=== PATIENT | female | born 1980 | race Caucasian/White ===

== ENCOUNTER 2016-02-28 13:15 | Emergency (ER) | payer SELFPAY ==
[~2016-02-28] VITALS: Ht 177.8 cm; Wt 122.5 kg
[~2016-02-28 13:15] MED LIST: CYCL10TA9 PO; DICL75TA2 PO; FLC150T PO; METR500T; NAPR-243 PO; NF-ESOM40C PO; SULF1TAB23 PO; TRM50T PO
--- OUTSIDE RECORDS SUMMARY | 2016-02-28 13:20 | XMS REPORT | Continuity of Care Document ---
Author Author [facility] Organization [facility] Address Unknown Phone Unavailable Care Team Providers Care Tin Assorter Name Role Phone [facility] OF PCP Insurance Providers Payer Name Policy Number Subscriber Name Relationship Self Pay Nae Tripp 18 Self / Same As Patient Advance Directives Directive Response Recorded Date/Time Advance Directives No 01/13/14 4:27pm Resuscitation Status Full Code 01/13/14 4:27pm Problems Medical Problems Problem Onset Date Status Abdominal pain Unknown Active Medications Medication Dose Route Sig Days/Qty Instructions Order Date Discontinued Date Status Naproxen 1 Each PO THREE TIMES A DAY 30 Qty FOR PAIN 05/30/08 07/03/10 Discontinued Tramadol HCl 50 Mg PO EVERY 4HRS 20 Qty 05/30/08 07/03/10 Discontinued Fluconazole 150 Mg PO ONCE 1 Days 09/01/08 07/03/10 Discontinued Metronidazole (Flagyl) 09/08/08 07/03/10 Discontinued Cyclobenzaprine HCl (Flexeril) 10 Mg PO EVERY 8HRS PRN PAIN 09/08/13 01/13/14 Discontinued Esomeprazole Magnesium 40 Mg PO DAILY 30 Qty 01/13/14 Active Diclofenac Sodium 75 Mg PO TWICE A DAY 01/13/14 Active Sulfamethoxazole/Trimethoprim 1 Tab PO TWICE A DAY 20 Qty 01/13/14 Active Social History Social History Problem Response Recorded Date/Time Alcohol Use Denies Use 01/13/2014 4:27pm Recreational Drug Use No 01/13/2014 4:27pm Recent Foreign Travel No 01/13/2014 4:19pm Smoking Status Former Smoker 01/13/2014 4:27pm Query Response Start Date Stop Date Smoking Status Former Smoker Hospital Discharge Instructions No hospital discharge instructions. Plan of Care No plan of care. Functional Status No functional status results. Allergies, Adverse Reactions, Alerts Allergen Type Severity Reaction Status Last Updated Aspirin Allergy Unknown Active 01/13/14 ibuprofen Allergy Mild HIVES Active 05/30/08 Amoxicillin ([id number]) Allergy Mild HIVES Active 05/30/08 Immunizations Name Given Type Date of Influenza Vaccine 11/07/13 Historical Tetanus Booster (TDap) Unknown Historical Vital Signs Acute Vital Signs Vital Response Date/Time Temperature (Fahrenheit) 98.5 degrees F (97.6 - 99.5) Temperature (Calculated Celsius) 36.39492 degrees C (36.4 - 37.5) Temperature Source Temporal Pulse Rate (adult) 92 bpm (60 - 90) Respiratory Rate 16 bpm (12 - 24) O2 Sat by Pulse Oximetry 97 % (88 - 100) Blood Pressure 156/91 mm Hg Pain Pain Intensity 7 Height (Feet) 5 feet Height (Inches) 9 inches Height (Calculated Centimeters) 175.548457 cm Weight (Pounds) 304 pounds Weight (Calculated Kilograms) 137.079759 kilograms Calculated BMI 44.89 Results No known relevant diagnostic tests, laboratory data and/or discharge summary. Procedures No known history of procedures. Encounters Encounter Location Date/Time Departed Emergency Room [facility] 01/13/14 4:16pm Registered Clinic [facility] 12/31/13 12:19pm Recent Diagnosis
[2016-02-28] MEDS ORDERED: meTOproloL SUCCINATE 50 MG (TOPROL XL) TAB PO ONE (13:28)
[2016-02-28] MEDS ORDERED: meTOprolol TARTRATE 25 MG (LOPRESSOR) TABLET ONE (13:29)
--- NOTE | 2016-02-28 13:31 | ED Cardiac General ---
History of Present Illness General Chief Complaint: Cardiac/General Problems Stated Complaint: DIZZINESS/ELEV BP Source: patient Exam Limitations: no limitations History of Present Illness Time seen by provider: 13:29 Initial Comments To ER with reports of dizziness, headache, high blood pressure. She was at work at [employer] when she had dizziness, sweating, near syncopal event but she did not actually lose consciousness. Staff on scene checked her blood pressure and found it to be very high at 190/90 range. Upon arrival to ER she is 193/93. She states normally her blood pressure is 130s over 70s. She denies chest pain or shortness of breath. She had all of her teeth pulled and dentures made last week and is currently on antibiotics and pain medication. She denies any current pain. Severity: moderate NTG SL [employer] BRANCH MANAGER: No ASA po [employer]CIAL INSTITUTION BRANCH MANAGER: No Associated Systoms: No Chest Pain, No Cough, No Diaphoresis, No Fever/Chills, HeadachesNo Nausea/Vomiting Allergies and Home Medications Allergies Coded Allergies: amoxicillin (Unverified Allergy, Mild, HIVES, 05/30/08) ibuprofen (Unverified Allergy, Mild, HIVES, 05/30/08) aspirin (Unverified Allergy, Unknown, 01/13/14) Home Medications Diclofenac Sodium 75 Mg Tablet. 75 MG PO BID (Reported) Esomeprazole Mag Trihydrate 40 Mg Capsule. #30 40 MG PO DAILY (Reported) Sulfamethoxazole/Trimethoprim 1 Tab Tablet #20 1 TAB PO BID Prescribed by: KAJAL LOPEZ on 01/13/14 1731 Review of Systems Constitutional: see HPI EENTM: No Symptoms Reported Respiratory: No Symptoms ReportedDenies Cough, Denies Orthopnea, Denies Shortness of Air, Denies SOA With Exertion, Denies SOA at Rest, Denies Stridor, Denies Wheezing Cardiovascular: No Symptoms Reported Gastrointestinal: No Symptoms Reported Genitourinary: No Symptoms Reported Musculoskeletal: no symptoms reported Skin: no symptoms reported Psychiatric/Neurological: No Symptoms Reported Endocrine: No Symptoms Reported Past Fdnsrvi-Bcvqoo-Omobkb Hx Patient Social History Recent Foreign Travel: No Contact w/Someone Who Travel: No Immunizations Up To Date Tetanus Booster (TDap): Unknown Date of Influenza Vaccine: Nov 07, 2013 Surgeries HX Surgeries: Yes Surgeries: Adenoidectomy, Tonsillectomy Respiratory Hx Respiratory Disorders: Yes Respiratory Disorders: Asthma Cardiovascular Hx Cardiac Disorders: No Neurological Hx Neurological Disorders: No Genitourinary Hx Genitourinary Disorders: No Gastrointestinal Hx Gastrointestinal Disorders: No Musculoskeletal Hx Musculoskeletal Disorders: Yes Musculoskeletal Disorders: Arthritis Endocrine Hx Endocrine Disorders: No Cancer Hx Cancer: No Psychosocial Hx Psychiatric Problems: No Family Medical History Family Medial History: Patient reports no known family medical history. Physical Exam Vital Signs Vital Sign - Last 12Hours 02/28/16 13:17 Temp 98.0 Pulse 108 Resp 18 B/P 192/98 Pulse Ox 97 O2 Delivery Room Air Capillary Refill : General Appearance: No Apparent Distress WD/WN Obese HEENT: PERRL/EOMI TMs Normal Neck: Full Range of Motion Normal Inspection Respiratory: Lungs Clear Normal Breath Sounds No Accessory Muscle Use No Respiratory Distress Cardiovascular: Regular Rate, Rhythm Normal Peripheral Pulses Gastrointestinal: Normal Bowel Sounds Non Tender Soft Extremity: Normal Capillary Refill Normal Inspection Neurologic/Psychiatric: Alert Oriented x3 Skin: Normal Color Warm/Dry Progress/Results/Core Measures Results/Orders Lab Results Laboratory Tests Test 02/28/16 13:28 Range/Units Alanine Aminotransferase (ALT/SGPT) 20 0-55 U/L Albumin 4.5 3.2-4.5 G/DL Alkaline Phosphatase 61 40-136 U/L Anion Gap 12 5-14 MMOL/L Aspartate Amino Transf (AST/SGOT) 20 5-34 U/L BUN/Creatinine Ratio 16 Basophils # (Auto) 0.0 0.0-0.1 10^3/uL Basophils (%) (Auto) 1 0-10 % Blood Urea Nitrogen 13 7-18 MG/DL Calcium Level 9.5 8.5-10.1 MG/DL Carbon Dioxide Level 22 21-32 MMOL/L Chloride Level 104 98-107 MMOL/L Creatinine 0.81 0.60-1.30 MG/DL Eosinophils # (Auto) 0.1 0.0-0.3 10^3/uL Eosinophils (%) (Auto) 1 0-10 % Estimat Glomerular Filtration Rate > 60 Free Thyroxine 1.08 0.70-1.48 NG/DL Glucose Level 108 H 70-105 MG/DL Hematocrit 44 35-52 % Hemoglobin 15.2 11.5-16.0 G/DL Lymphocytes # (Auto) 1.4 1.0-4.0 X 10^3 Lymphocytes (%) (Auto) 17 12-44 % Mean Corpuscular Hemoglobin 29 25-34 PG Mean Corpuscular Hemoglobin Concent 35 32-36 G/DL Mean Corpuscular Volume 85 80-99 FL Mean Platelet Volume 10.5 H 7.4-10.4 FL Monocytes # (Auto) 0.9 0.0-1.0 X 10^3 Monocytes (%) (Auto) 11 0-12 % Neutrophils # (Auto) 5.9 1.8-7.8 X 10^3 Neutrophils (%) (Auto) 70 42-75 % Platelet Count 201 130-400 10^3/uL Potassium Level 3.6 3.6-5.0 MMOL/L Red Blood Count 5.17 4.35-5.85 10^6/uL Red Cell Distribution Width 13.0 10.0-14.5 % Sodium Level 138 135-145 MMOL/L Thyroid Stimulating Hormone (TSH) 0.81 0.35-4.94 UIU/ML Total Bilirubin 0.7 0.1-1.0 MG/DL Total Protein 7.5 6.4-8.2 G/DL Troponin I < 0.30 <0.30 NG/ML White Blood Count 8.4 4.3-11.0 10^3/uL My Orders Orders-WILMER BLACKMAN APRN Cbc With Automated Diff (02/28/16 13:28) Comprehensive Metabolic Panel (02/28/16 13:28) Troponin I (02/28/16 13:28) Ekg Tracing (02/28/16 13:28) Thyroid Stimulating Hormone (02/28/16 13:28) Free T4 (Free Thyroxine) (02/28/16 13:28) Clonidine Tablet (Catapres Tablet) (02/28/16 13:45) Metoprolol Tartrate (Ir) Tab (Lopressor (02/28/16 13:45) Metoprolol Succinate (Xl) Tab (Toprol Xl (02/28/16 13:28) Metoprolol Tartrate (Ir) Tab (Lopressor (02/28/16 13:29) Medications Given in ED Current Medications Medications Dose Ordered Sig/Renny Route Start Time Stop Time Status Last Admin Dose Admin Metoprolol Tartrate 50 mg ONCE ONCE PO 02/28/16 13:45 02/28/16 13:46 DC 02/28/16 13:38 50 MG Vital Signs/I&O Vital Sign - Last 12Hours 02/28/16 13:17 Temp 98.0 Pulse 108 Resp 18 B/P 192/98 Pulse Ox 97 O2 Delivery Room Air Departure Communication Progress Notes 1345-No unilateral leg swelling, no dyspnea or shortness of breath, no exogenous estrogen use, no history of DVT. Impression Impression: Primary Impression: Hypertensive urgency Disposition: 01 HOME, SELF-CARE Condition: Stable Departure-Patient Inst. Decision time for Depature: 13:45 Referrals: [facility] (PCP/Family) Primary Care Physician Patient Instructions: High Blood Pressure (DC) Add. Discharge Instructions: 1. Follow-up with your doctor later this week 2. Return to ER for any concerns 3. All discharge instructions reviewed with patient and/or family. Voiced understanding. Scripts Metoprolol Succinate (Toprol Xl)25 Mg Tab.er.24h25 Mg PO DAILY #14 TAB Prov:WILMER BLACKMAN APRN 02/28/16 WILMER BLACKMAN APRN Feb 28, 2016 13:31
[2016-02-28 13:43] LABS: BASOPHILS % (AUTO) 1 % (0-10); EOSINOPHILS # (AUTO) 0.1 10^3/uL (0.0-0.3); EOSINOPHILS % (AUTO) 1 % (0-10); LYMPHOCYTES # (AUTO) 1.4 X 10^3 (1.0-4.0); LYMPHOCYTES % (AUTO) 17 % (12-44); MEAN CORPUSCULAR HEMOGLOBIN 29 PG (25-34); MEAN CORPUSCULAR HGB CONC 35 G/DL (32-36); MEAN CORPUSCULAR VOLUME 85 FL (80-99); MEAN PLATELET VOLUME 10.5 FL (7.4-10.4); MONOCYTES # (AUTO) 0.9 X 10^3 (0.0-1.0); MONOCYTES % (AUTO) 11 % (0-12); NEUTROPHILS # (AUTO) 5.9 X 10^3 (1.8-7.8); NEUTROPHILS % (AUTO) 70 % (42-75); PLATELET COUNT 201 10^3/uL (130-400); RED BLOOD COUNT 5.17 10^6/uL (4.35-5.85); WHITE BLOOD COUNT 8.4 10^3/uL (4.3-11.0)
[2016-02-28] MEDS ORDERED: meTOprolol TARTRATE 50 MG (LOPRESSOR) TAB PO ONE (13:45)
[2016-02-28] MEDS ORDERED: cloNIDine 0.1 MG (CATAPRES) TAB PO ONE (13:45)
[2016-02-28 14:01] LABS: ALANINE AMINOTRANSFERASE 20 U/L (0-55); ALBUMIN 4.5 G/DL (3.2-4.5); ANION GAP 12 MMOL/L (5-14); ASPARTATE AMINO TRANSFERASE 20 U/L (5-34); BILIRUBIN,TOTAL 0.7 MG/DL (0.1-1.0); BLOOD UREA NITROGEN 13 MG/DL (7-18); BUN/CREATININE RATIO 16; CALCIUM 9.5 MG/DL (8.5-10.1); CARBON DIOXIDE 22 MMOL/L (21-32); CHLORIDE 104 MMOL/L (98-107); CREATININE SERUM 0.81 MG/DL (0.60-1.30); GFR ESTIMATED > 60; GLUCOSE 108 MG/DL (70-105); POTASSIUM 3.6 MMOL/L (3.6-5.0); SODIUM 138 MMOL/L (135-145); TOTAL PROTEIN 7.5 G/DL (6.4-8.2)
[2016-02-28 14:21] LABS: THYROID STIMULATING HORMONE 0.81 UIU/ML (0.35-4.94); TROPONIN I < 0.30 NG/ML (<0.30)
[2016-02-28] MEDS ORDERED: METO-351 PO (14:39)
[2016-02-28] MEDS ORDERED: KETOROLAC 30 MG/ML VIAL IVP ONE (15:15)
[2016-02-28 15:26] VITALS: BP 137/79
== END 2016-02-28 15:24 | disposition home or self-care (01) ==
LOC: EDUNIT# 13:15 → ER 13:16
DX: I16.0 Hypertensive urgency (principal); R42 Dizziness and giddiness; R55 Syncope and collapse
CPT/HCPCS: 36415; 80053; 84439; 84443; 84484; 85025; 93005; 96374

== ENCOUNTER 2017-03-17 05:54 | Outpatient (CLI) | payer SELFPAY ==
[~2017-03-17] VITALS: Ht 175.3 cm; Wt 121.1 kg
[~2017-03-17 05:54] MED LIST changes: +METO-351 PO
[2017-03-17] MEDS ORDERED: HYDR-34 PO (12:24)
[2017-03-17] MEDS ORDERED: SULF-222 PO (12:24)
== END 2017-03-17 12:33 ==
LOC: PREOP 05:54
PROVIDERS: ATTEND Surgery
DX: Z01.818 Encounter for other preprocedural examination (principal); N76.4 Abscess of vulva

== ENCOUNTER → 2020-01-24 | Outpatient (CLI) | payer MEDICAID ==
[~2020-01-24] MED LIST changes: +HYDR-34 PO; +SULF-222 PO
== END ==
LOC: CARD 11:00
PROVIDERS: ATTEND Internal Medicine Hematology & Oncology
DX: Z51.81 Encounter for therapeutic drug level monitoring (principal); C55 Malignant neoplasm of uterus, part unspecified; I51.7 Cardiomegaly
CPT/HCPCS: 93306

== ENCOUNTER 2020-02-07 12:58 | Outpatient (RCR) | payer MEDICAID, OTHER ==
[2020-01-22 12:57] LABS: BASOPHILS % (AUTO) 0 % (0-10); EOSINOPHILS # (AUTO) 0.3 10^3/uL (0.0-0.3); EOSINOPHILS % (AUTO) 3 % (0-10); HEMATOCRIT 39 % (35-52); HEMOGLOBIN 12.3 g/dL (11.5-16.0); LYMPHOCYTES # (AUTO) 1.7 10^3/uL (1.0-4.0); LYMPHOCYTES % (AUTO) 19 % (12-44); MEAN CORPUSCULAR HEMOGLOBIN 27 pg (25-34); MEAN CORPUSCULAR HGB CONC 32 g/dL (32-36); MEAN CORPUSCULAR VOLUME 87 fL (80-99); MEAN PLATELET VOLUME 9.2 fL (9.0-12.2); MONOCYTES # (AUTO) 0.7 10^3/uL (0.0-1.0); MONOCYTES % (AUTO) 8 % (0-12); NEUTROPHILS # (AUTO) 6.1 10^3/uL (1.8-7.8); NEUTROPHILS % (AUTO) 68 % (42-75); PLATELET COUNT 224 10^3/uL (130-400); WHITE BLOOD COUNT 8.9 10^3/uL (4.3-11.0)
[2020-01-22 13:26] LABS: ALANINE AMINOTRANSFERASE 12 U/L (0-55); ALBUMIN 4.1 GM/DL (3.2-4.5); ALKALINE PHOSPHATASE 58 U/L (40-136); BILIRUBIN,TOTAL 0.3 MG/DL (0.1-1.0); BUN/CREATININE RATIO 14; CALCIUM 9.2 MG/DL (8.5-10.1); CARBON DIOXIDE 24 MMOL/L (21-32); CHLORIDE 104 MMOL/L (98-107); CREATININE SERUM 0.84 MG/DL (0.60-1.30); GFR ESTIMATED > 60; GLUCOSE 95 MG/DL (70-105); POTASSIUM 4.1 MMOL/L (3.6-5.0); SODIUM 139 MMOL/L (135-145); TOTAL PROTEIN 7.5 GM/DL (6.4-8.2)
[2020-02-06 09:21] LABS: BASOPHILS % (AUTO) 0 % (0-10); EOSINOPHILS % (AUTO) 0 % (0-10); HEMATOCRIT 41 % (35-52); HEMOGLOBIN 12.9 g/dL (11.5-16.0); LYMPHOCYTES # (AUTO) 0.3 10^3/uL (1.0-4.0); LYMPHOCYTES % (AUTO) 4 % (12-44); MEAN CORPUSCULAR HEMOGLOBIN 27 pg (25-34); MEAN CORPUSCULAR HGB CONC 32 g/dL (32-36); MEAN CORPUSCULAR VOLUME 86 fL (80-99); MEAN PLATELET VOLUME 9.8 fL (9.0-12.2); MONOCYTES # (AUTO) 0.1 10^3/uL (0.0-1.0); MONOCYTES % (AUTO) 1 % (0-12); NEUTROPHILS # (AUTO) 7.8 10^3/uL (1.8-7.8); NEUTROPHILS % (AUTO) 94 % (42-75); PLATELET COUNT 221 10^3/uL (130-400); WHITE BLOOD COUNT 8.3 10^3/uL (4.3-11.0)
[2020-02-06 09:40] LABS: ALANINE AMINOTRANSFERASE 12 U/L (0-55); ALBUMIN 4.1 GM/DL (3.2-4.5); ALKALINE PHOSPHATASE 56 U/L (40-136); BILIRUBIN,TOTAL 0.3 MG/DL (0.1-1.0); BUN/CREATININE RATIO 14; CARBON DIOXIDE 22 MMOL/L (21-32); CHLORIDE 103 MMOL/L (98-107); CREATININE SERUM 0.84 MG/DL (0.60-1.30); GFR ESTIMATED > 60; GLUCOSE 242 MG/DL (70-105); POTASSIUM 3.8 MMOL/L (3.6-5.0); SODIUM 137 MMOL/L (135-145); TOTAL PROTEIN 7.7 GM/DL (6.4-8.2)
[~2020-02-07] VITALS: Ht 175.3 cm; Wt 128.4 kg
[~2020-02-07 12:58] MED LIST changes: +FAMOTIDINE 20MG/2ML IV (CANCER CTR) IV SCH; +FOSAPREPITANT (CANCER CENTER) 150 MG in NS (IVPB) CANCER CENTER ONLY 150 ML IV SCH; +NS IV 1000 ML (CANCER CTR) IV SCH; +diphenhydrAMINE 50 MG/ML INJ (CANCER CENTER) IV PRN; +diphenhydrAMINE 50 MG/ML INJ (CANCER CENTER) ONE
[2020-02-07] MEDS ORDERED: PEGFILGRASTIM 6 MG/0.6ML NEULASTA SC SCH (13:15)
== END 2020-02-11 15:34 | disposition home or self-care (01) ==
LOC: ONC 12:58
PROVIDERS: ATTEND Internal Medicine Hematology & Oncology
DX: C55 Malignant neoplasm of uterus, part unspecified (principal)
CPT/HCPCS: 80053; 85025; G0463; 36591; 83735; 96367; 96372; 96375; 96413; 96415; 96417; 99213; 99214

== ENCOUNTER 2020-04-23 12:43 | Outpatient (RCR) | payer MEDICAID ==
[2020-02-13 09:35] LABS: BASOPHILS # (AUTO) 0.1 10^3/uL (0.0-0.1); BASOPHILS % (AUTO) 1 % (0-10); EOSINOPHILS # (AUTO) 0.2 10^3/uL (0.0-0.3); EOSINOPHILS % (AUTO) 1 % (0-10); HEMATOCRIT 40 % (35-52); LYMPHOCYTES # (AUTO) 1.9 10^3/uL (1.0-4.0); LYMPHOCYTES % (AUTO) 11 % (12-44); MEAN CORPUSCULAR HEMOGLOBIN 27 pg (25-34); MEAN CORPUSCULAR HGB CONC 32 g/dL (32-36); MEAN CORPUSCULAR VOLUME 85 fL (80-99); MEAN PLATELET VOLUME 9.7 fL (9.0-12.2); MONOCYTES # (AUTO) 1.2 10^3/uL (0.0-1.0); MONOCYTES % (AUTO) 7 % (0-12); NEUTROPHILS # (AUTO) 11.1 10^3/uL (1.8-7.8); NEUTROPHILS % (AUTO) 66 % (42-75); PLATELET COUNT 202 10^3/uL (130-400); WHITE BLOOD COUNT 16.8 10^3/uL (4.3-11.0)
[2020-02-13 09:56] LABS: BUN/CREATININE RATIO 16; CALCIUM 9.2 MG/DL (8.5-10.1); CARBON DIOXIDE 25 MMOL/L (21-32); CHLORIDE 104 MMOL/L (98-107); GFR ESTIMATED > 60; GLUCOSE 112 MG/DL (70-105); POTASSIUM 4.2 MMOL/L (3.6-5.0); SODIUM 139 MMOL/L (135-145)
[2020-02-20 09:39] LABS: BASOPHILS % (AUTO) 1 % (0-10); EOSINOPHILS # (AUTO) 0.1 10^3/uL (0.0-0.3); EOSINOPHILS % (AUTO) 1 % (0-10); HEMATOCRIT 41 % (35-52); HEMOGLOBIN 13.3 g/dL (11.5-16.0); LYMPHOCYTES # (AUTO) 1.3 10^3/uL (1.0-4.0); LYMPHOCYTES % (AUTO) 20 % (12-44); MEAN CORPUSCULAR HEMOGLOBIN 28 pg (25-34); MEAN CORPUSCULAR HGB CONC 32 g/dL (32-36); MEAN CORPUSCULAR VOLUME 85 fL (80-99); MONOCYTES # (AUTO) 0.3 10^3/uL (0.0-1.0); MONOCYTES % (AUTO) 5 % (0-12); NEUTROPHILS # (AUTO) 4.7 10^3/uL (1.8-7.8); NEUTROPHILS % (AUTO) 72 % (42-75); PLATELET COUNT 131 10^3/uL (130-400); WHITE BLOOD COUNT 6.4 10^3/uL (4.3-11.0)
[2020-02-20 09:58] LABS: BUN/CREATININE RATIO 10; CALCIUM 9.1 MG/DL (8.5-10.1); CARBON DIOXIDE 21 MMOL/L (21-32); CHLORIDE 106 MMOL/L (98-107); CREATININE SERUM 0.86 MG/DL (0.60-1.30); GFR ESTIMATED > 60; GLUCOSE 175 MG/DL (70-105); POTASSIUM 3.7 MMOL/L (3.6-5.0); SODIUM 140 MMOL/L (135-145)
[2020-02-27 09:19] LABS: BASOPHILS % (AUTO) 0 % (0-10); EOSINOPHILS % (AUTO) 0 % (0-10); HEMATOCRIT 41 % (35-52); HEMOGLOBIN 13.5 g/dL (11.5-16.0); LYMPHOCYTES # (AUTO) 0.4 10^3/uL (1.0-4.0); LYMPHOCYTES % (AUTO) 5 % (12-44); MEAN CORPUSCULAR HEMOGLOBIN 27 pg (25-34); MEAN CORPUSCULAR HGB CONC 33 g/dL (32-36); MEAN CORPUSCULAR VOLUME 84 fL (80-99); MEAN PLATELET VOLUME 9.7 fL (9.0-12.2); MONOCYTES # (AUTO) 0.1 10^3/uL (0.0-1.0); MONOCYTES % (AUTO) 1 % (0-12); NEUTROPHILS % (AUTO) 93 % (42-75); PLATELET COUNT 247 10^3/uL (130-400); WHITE BLOOD COUNT 7.4 10^3/uL (4.3-11.0)
[2020-02-27 09:35] LABS: ALANINE AMINOTRANSFERASE 18 U/L (0-55); ALBUMIN 4.2 GM/DL (3.2-4.5); ALKALINE PHOSPHATASE 70 U/L (40-136); BILIRUBIN,TOTAL 0.3 MG/DL (0.1-1.0); BUN/CREATININE RATIO 14; CALCIUM 9.6 MG/DL (8.5-10.1); CARBON DIOXIDE 19 MMOL/L (21-32); CHLORIDE 103 MMOL/L (98-107); CREATININE SERUM 0.87 MG/DL (0.60-1.30); GFR ESTIMATED > 60; GLUCOSE 270 MG/DL (70-105); MAGNESIUM 1.7 MG/DL (1.6-2.4); POTASSIUM 4.2 MMOL/L (3.6-5.0); SODIUM 137 MMOL/L (135-145); TOTAL PROTEIN 7.7 GM/DL (6.4-8.2)
[2020-03-05 15:06] LABS: BASOPHILS # (AUTO) 0.1 10^3/uL (0.0-0.1); BASOPHILS % (AUTO) 1 % (0-10); EOSINOPHILS # (AUTO) 0.2 10^3/uL (0.0-0.3); EOSINOPHILS % (AUTO) 1 % (0-10); HEMATOCRIT 40 % (35-52); LYMPHOCYTES # (AUTO) 2.1 10^3/uL (1.0-4.0); LYMPHOCYTES % (AUTO) 11 % (12-44); MEAN CORPUSCULAR HEMOGLOBIN 28 pg (25-34); MEAN CORPUSCULAR HGB CONC 33 g/dL (32-36); MEAN CORPUSCULAR VOLUME 85 fL (80-99); MEAN PLATELET VOLUME 9.9 fL (9.0-12.2); MONOCYTES % (AUTO) 5 % (0-12); NEUTROPHILS # (AUTO) 14.6 10^3/uL (1.8-7.8); NEUTROPHILS % (AUTO) 73 % (42-75); PLATELET COUNT 161 10^3/uL (130-400); WHITE BLOOD COUNT 19.9 10^3/uL (4.3-11.0)
[2020-03-05 15:18] LABS: BUN/CREATININE RATIO 16; CALCIUM 8.9 MG/DL (8.5-10.1); CARBON DIOXIDE 21 MMOL/L (21-32); CHLORIDE 106 MMOL/L (98-107); CREATININE SERUM 0.96 MG/DL (0.60-1.30); GFR ESTIMATED > 60; GLUCOSE 207 MG/DL (70-105); POTASSIUM 3.7 MMOL/L (3.6-5.0); SODIUM 139 MMOL/L (135-145)
[2020-03-12 12:02] LABS: BASOPHILS % (AUTO) 0 % (0-10); EOSINOPHILS # (AUTO) 0.1 10^3/uL (0.0-0.3); EOSINOPHILS % (AUTO) 1 % (0-10); HEMATOCRIT 41 % (35-52); HEMOGLOBIN 13.1 g/dL (11.5-16.0); LYMPHOCYTES % (AUTO) 18 % (12-44); MEAN CORPUSCULAR HEMOGLOBIN 28 pg (25-34); MEAN CORPUSCULAR HGB CONC 32 g/dL (32-36); MEAN CORPUSCULAR VOLUME 86 fL (80-99); MEAN PLATELET VOLUME 9.6 fL (9.0-12.2); MONOCYTES # (AUTO) 0.6 10^3/uL (0.0-1.0); MONOCYTES % (AUTO) 6 % (0-12); NEUTROPHILS # (AUTO) 8.1 10^3/uL (1.8-7.8); NEUTROPHILS % (AUTO) 73 % (42-75); PLATELET COUNT 162 10^3/uL (130-400); WHITE BLOOD COUNT 11.1 10^3/uL (4.3-11.0)
[2020-03-12 12:25] LABS: BUN/CREATININE RATIO 11; CALCIUM 9.4 MG/DL (8.5-10.1); CARBON DIOXIDE 24 MMOL/L (21-32); CHLORIDE 104 MMOL/L (98-107); CREATININE SERUM 0.79 MG/DL (0.60-1.30); GFR ESTIMATED > 60; GLUCOSE 95 MG/DL (70-105); POTASSIUM 3.5 MMOL/L (3.6-5.0); SODIUM 141 MMOL/L (135-145)
[2020-03-19 11:25] LABS: BASOPHILS % (AUTO) 0 % (0-10); EOSINOPHILS % (AUTO) 0 % (0-10); HEMATOCRIT 37 % (35-52); HEMOGLOBIN 12.1 g/dL (11.5-16.0); LYMPHOCYTES # (AUTO) 0.5 10^3/uL (1.0-4.0); LYMPHOCYTES % (AUTO) 6 % (12-44); MEAN CORPUSCULAR HEMOGLOBIN 28 pg (25-34); MEAN CORPUSCULAR HGB CONC 33 g/dL (32-36); MEAN CORPUSCULAR VOLUME 85 fL (80-99); MEAN PLATELET VOLUME 8.9 fL (9.0-12.2); MONOCYTES # (AUTO) 0.3 10^3/uL (0.0-1.0); MONOCYTES % (AUTO) 3 % (0-12); NEUTROPHILS # (AUTO) 7.8 10^3/uL (1.8-7.8); NEUTROPHILS % (AUTO) 90 % (42-75); PLATELET COUNT 162 10^3/uL (130-400); WHITE BLOOD COUNT 8.7 10^3/uL (4.3-11.0)
[2020-03-19 11:43] LABS: ALANINE AMINOTRANSFERASE 12 U/L (0-55); ALBUMIN 3.8 GM/DL (3.2-4.5); ALKALINE PHOSPHATASE 70 U/L (40-136); BILIRUBIN,TOTAL 0.3 MG/DL (0.1-1.0); BUN/CREATININE RATIO 10; CALCIUM 8.9 MG/DL (8.5-10.1); CARBON DIOXIDE 24 MMOL/L (21-32); CHLORIDE 105 MMOL/L (98-107); GFR ESTIMATED > 60; GLUCOSE 172 MG/DL (70-105); MAGNESIUM 1.7 MG/DL (1.6-2.4); POTASSIUM 3.6 MMOL/L (3.6-5.0); SODIUM 139 MMOL/L (135-145); TOTAL PROTEIN 6.7 GM/DL (6.4-8.2)
[2020-04-02 09:53] LABS: BASOPHILS % (AUTO) 0 % (0-10); EOSINOPHILS # (AUTO) 0.1 10^3/uL (0.0-0.3); EOSINOPHILS % (AUTO) 1 % (0-10); HEMATOCRIT 41 % (35-52); HEMOGLOBIN 13.6 g/dL (11.5-16.0); LYMPHOCYTES # (AUTO) 1.4 10^3/uL (1.0-4.0); LYMPHOCYTES % (AUTO) 17 % (12-44); MEAN CORPUSCULAR HEMOGLOBIN 29 pg (25-34); MEAN CORPUSCULAR HGB CONC 33 g/dL (32-36); MEAN CORPUSCULAR VOLUME 87 fL (80-99); MEAN PLATELET VOLUME 9.1 fL (9.0-12.2); MONOCYTES # (AUTO) 0.5 10^3/uL (0.0-1.0); MONOCYTES % (AUTO) 7 % (0-12); NEUTROPHILS # (AUTO) 5.9 10^3/uL (1.8-7.8); NEUTROPHILS % (AUTO) 74 % (42-75); PLATELET COUNT 160 10^3/uL (130-400); WHITE BLOOD COUNT 7.9 10^3/uL (4.3-11.0)
[2020-04-02 10:12] LABS: BUN/CREATININE RATIO 9; CALCIUM 9.1 MG/DL (8.5-10.1); CARBON DIOXIDE 23 MMOL/L (21-32); CHLORIDE 106 MMOL/L (98-107); CREATININE SERUM 0.85 MG/DL (0.60-1.30); GFR ESTIMATED > 60; GLUCOSE 137 MG/DL (70-105); POTASSIUM 3.7 MMOL/L (3.6-5.0); SODIUM 139 MMOL/L (135-145)
[2020-04-09 10:15] LABS: BASOPHILS % (AUTO) 0 % (0-10); EOSINOPHILS % (AUTO) 0 % (0-10); HEMATOCRIT 39 % (35-52); HEMOGLOBIN 12.8 g/dL (11.5-16.0); LYMPHOCYTES # (AUTO) 0.3 10^3/uL (1.0-4.0); LYMPHOCYTES % (AUTO) 5 % (12-44); MEAN CORPUSCULAR HEMOGLOBIN 29 pg (25-34); MEAN CORPUSCULAR HGB CONC 33 g/dL (32-36); MEAN CORPUSCULAR VOLUME 87 fL (80-99); MEAN PLATELET VOLUME 9.4 fL (9.0-12.2); MONOCYTES % (AUTO) 1 % (0-12); NEUTROPHILS # (AUTO) 4.5 10^3/uL (1.8-7.8); NEUTROPHILS % (AUTO) 93 % (42-75); PLATELET COUNT 223 10^3/uL (130-400); WHITE BLOOD COUNT 4.9 10^3/uL (4.3-11.0)
[2020-04-09 10:34] LABS: ALANINE AMINOTRANSFERASE 18 U/L (0-55); ALBUMIN 4.2 GM/DL (3.2-4.5); ALKALINE PHOSPHATASE 77 U/L (40-136); BILIRUBIN,TOTAL 0.3 MG/DL (0.1-1.0); BUN/CREATININE RATIO 13; CALCIUM 9.3 MG/DL (8.5-10.1); CARBON DIOXIDE 19 MMOL/L (21-32); CHLORIDE 106 MMOL/L (98-107); CREATININE SERUM 0.84 MG/DL (0.60-1.30); GFR ESTIMATED > 60; GLUCOSE 188 MG/DL (70-105); MAGNESIUM 1.7 MG/DL (1.6-2.4); POTASSIUM 3.9 MMOL/L (3.6-5.0); SODIUM 138 MMOL/L (135-145); TOTAL PROTEIN 7.4 GM/DL (6.4-8.2)
[2020-04-16 11:54] LABS: BASOPHILS # (AUTO) 0.1 10^3/uL (0.0-0.1); BASOPHILS % (AUTO) 1 % (0-10); EOSINOPHILS # (AUTO) 0.1 10^3/uL (0.0-0.3); EOSINOPHILS % (AUTO) 1 % (0-10); HEMATOCRIT 37 % (35-52); HEMOGLOBIN 12.2 g/dL (11.5-16.0); LYMPHOCYTES % (AUTO) 12 % (12-44); MEAN CORPUSCULAR HEMOGLOBIN 29 pg (25-34); MEAN CORPUSCULAR HGB CONC 33 g/dL (32-36); MEAN CORPUSCULAR VOLUME 88 fL (80-99); MEAN PLATELET VOLUME 9.5 fL (9.0-12.2); MONOCYTES % (AUTO) 6 % (0-12); NEUTROPHILS # (AUTO) 11.3 10^3/uL (1.8-7.8); NEUTROPHILS % (AUTO) 71 % (42-75); PLATELET COUNT 175 10^3/uL (130-400); WHITE BLOOD COUNT 15.8 10^3/uL (4.3-11.0)
[2020-04-16 12:11] LABS: BUN/CREATININE RATIO 13; CARBON DIOXIDE 25 MMOL/L (21-32); CHLORIDE 104 MMOL/L (98-107); GFR ESTIMATED > 60; GLUCOSE 127 MG/DL (70-105); POTASSIUM 3.8 MMOL/L (3.6-5.0); SODIUM 141 MMOL/L (135-145)
[~2020-04-23 12:43] MED LIST changes: +NORMAL SALINE IV SCH; +PACLITAXEL IV SCH; +PEGFILGRASTIM 6 MG/0.6ML NEULASTA SC SCH; +PEGFILGRASTIM-BMEZ 6 MG/0.6 ML ZIEXTENZO SQ SCH; +diphenhydrAMINE 25 MG TAB (BENADRYL) CANCER CENTER PO ONE; +diphenhydrAMINE 25 MG TAB (BENADRYL) CANCER CENTER PO SCH; -diphenhydrAMINE 50 MG/ML INJ (CANCER CENTER) ONE
[2020-04-23 12:53] LABS: BASOPHILS % (AUTO) 1 % (0-10); EOSINOPHILS # (AUTO) 0.1 10^3/uL (0.0-0.3); EOSINOPHILS % (AUTO) 1 % (0-10); HEMATOCRIT 37 % (35-52); HEMOGLOBIN 12.2 g/dL (11.5-16.0); LYMPHOCYTES # (AUTO) 1.4 10^3/uL (1.0-4.0); LYMPHOCYTES % (AUTO) 18 % (12-44); MEAN CORPUSCULAR HEMOGLOBIN 30 pg (25-34); MEAN CORPUSCULAR HGB CONC 33 g/dL (32-36); MEAN CORPUSCULAR VOLUME 89 fL (80-99); MEAN PLATELET VOLUME 9.4 fL (9.0-12.2); MONOCYTES # (AUTO) 0.5 10^3/uL (0.0-1.0); MONOCYTES % (AUTO) 6 % (0-12); NEUTROPHILS # (AUTO) 5.4 10^3/uL (1.8-7.8); NEUTROPHILS % (AUTO) 73 % (42-75); PLATELET COUNT 163 10^3/uL (130-400); WHITE BLOOD COUNT 7.5 10^3/uL (4.3-11.0)
[2020-04-23 13:12] LABS: BUN/CREATININE RATIO 9; CALCIUM 8.8 MG/DL (8.5-10.1); CARBON DIOXIDE 23 MMOL/L (21-32); CHLORIDE 107 MMOL/L (98-107); CREATININE SERUM 0.78 MG/DL (0.60-1.30); GFR ESTIMATED > 60; GLUCOSE 103 MG/DL (70-105); POTASSIUM 3.8 MMOL/L (3.6-5.0); SODIUM 140 MMOL/L (135-145)
== END 2020-05-13 | disposition home or self-care (01) ==
LOC: ONC 12:43
PROVIDERS: ATTEND Internal Medicine Hematology & Oncology
DX: C55 Malignant neoplasm of uterus, part unspecified (principal); Z87.891 Personal history of nicotine dependence; Z90.710 Acquired absence of both cervix and uterus
CPT/HCPCS: 36591; 80048; 80053; 83735; 85025; 96367; 96372; 96375; 96413; 96415; 96417; 99213

== ENCOUNTER 2020-06-25 10:30 | Outpatient (RCR) | payer MEDICAID ==
[2020-05-14 10:16] LABS: BASOPHILS % (AUTO) 0 % (0-10); EOSINOPHILS % (AUTO) 0 % (0-10); HEMATOCRIT 40 % (35-52); HEMOGLOBIN 13.4 g/dL (11.5-16.0); LYMPHOCYTES # (AUTO) 0.3 10^3/uL (1.0-4.0); LYMPHOCYTES % (AUTO) 4 % (12-44); MEAN CORPUSCULAR HEMOGLOBIN 30 pg (25-34); MEAN CORPUSCULAR HGB CONC 33 g/dL (32-36); MEAN CORPUSCULAR VOLUME 89 fL (80-99); MEAN PLATELET VOLUME 9.3 fL (9.0-12.2); MONOCYTES # (AUTO) 0.1 10^3/uL (0.0-1.0); MONOCYTES % (AUTO) 1 % (0-12); NEUTROPHILS % (AUTO) 94 % (42-75); PLATELET COUNT 230 10^3/uL (130-400); WHITE BLOOD COUNT 7.4 10^3/uL (4.3-11.0)
[2020-05-14 10:36] LABS: ALANINE AMINOTRANSFERASE 14 U/L (0-55); ALKALINE PHOSPHATASE 67 U/L (40-136); BILIRUBIN,TOTAL 0.4 MG/DL (0.1-1.0); BUN/CREATININE RATIO 16; CALCIUM 9.1 MG/DL (8.5-10.1); CARBON DIOXIDE 19 MMOL/L (21-32); CHLORIDE 105 MMOL/L (98-107); CREATININE SERUM 0.76 MG/DL (0.60-1.30); GFR ESTIMATED > 60; GLUCOSE 220 MG/DL (70-105); MAGNESIUM 1.7 MG/DL (1.6-2.4); SODIUM 138 MMOL/L (135-145)
[2020-05-21 15:28] LABS: BASOPHILS # (AUTO) 0.1 10^3/uL (0.0-0.1); BASOPHILS % (AUTO) 1 % (0-10); EOSINOPHILS # (AUTO) 0.1 10^3/uL (0.0-0.3); EOSINOPHILS % (AUTO) 1 % (0-10); HEMATOCRIT 38 % (35-52); HEMOGLOBIN 12.2 g/dL (11.5-16.0); LYMPHOCYTES # (AUTO) 1.6 10^3/uL (1.0-4.0); LYMPHOCYTES % (AUTO) 16 % (12-44); MEAN CORPUSCULAR HEMOGLOBIN 30 pg (25-34); MEAN CORPUSCULAR HGB CONC 32 g/dL (32-36); MEAN CORPUSCULAR VOLUME 92 fL (80-99); MEAN PLATELET VOLUME 9.7 fL (9.0-12.2); MONOCYTES # (AUTO) 0.7 10^3/uL (0.0-1.0); MONOCYTES % (AUTO) 7 % (0-12); NEUTROPHILS # (AUTO) 7.4 10^3/uL (1.8-7.8); NEUTROPHILS % (AUTO) 73 % (42-75); PLATELET COUNT 154 10^3/uL (130-400); WHITE BLOOD COUNT 10.1 10^3/uL (4.3-11.0)
[2020-05-21 15:36] LABS: CHLORIDE 102 MMOL/L (98-107); POTASSIUM 3.6 MMOL/L (3.6-5.0); SODIUM 137 MMOL/L (135-145)
[2020-05-21 15:37] LABS: CALCIUM 8.9 MG/DL (8.5-10.1); GLUCOSE 154 MG/DL (70-105)
[2020-05-21 15:39] LABS: CARBON DIOXIDE 24 MMOL/L (21-32)
[2020-05-21 15:41] LABS: CREATININE SERUM 0.85 MG/DL (0.60-1.30); GFR ESTIMATED > 60
[2020-05-21 15:42] LABS: BUN/CREATININE RATIO 11
[2020-05-30 14:56] LABS: BASOPHILS % (AUTO) 0 % (0-10); EOSINOPHILS # (AUTO) 0.1 10^3/uL (0.0-0.3); EOSINOPHILS % (AUTO) 1 % (0-10); HEMATOCRIT 39 % (35-52); HEMOGLOBIN 12.9 g/dL (11.5-16.0); LYMPHOCYTES # (AUTO) 1.4 10^3/uL (1.0-4.0); LYMPHOCYTES % (AUTO) 19 % (12-44); MEAN CORPUSCULAR HEMOGLOBIN 30 pg (25-34); MEAN CORPUSCULAR HGB CONC 33 g/dL (32-36); MEAN CORPUSCULAR VOLUME 92 fL (80-99); MONOCYTES # (AUTO) 0.5 10^3/uL (0.0-1.0); MONOCYTES % (AUTO) 7 % (0-12); NEUTROPHILS # (AUTO) 5.3 10^3/uL (1.8-7.8); NEUTROPHILS % (AUTO) 72 % (42-75); PLATELET COUNT 170 10^3/uL (130-400); WHITE BLOOD COUNT 7.4 10^3/uL (4.3-11.0)
[2020-05-30 15:13] LABS: BUN/CREATININE RATIO 9; CALCIUM 8.7 MG/DL (8.5-10.1); CARBON DIOXIDE 24 MMOL/L (21-32); CHLORIDE 104 MMOL/L (98-107); CREATININE SERUM 0.78 MG/DL (0.60-1.30); GFR ESTIMATED > 60; GLUCOSE 143 MG/DL (70-105); POTASSIUM 3.6 MMOL/L (3.6-5.0); SODIUM 138 MMOL/L (135-145)
[2020-06-04 09:43] LABS: BASOPHILS % (AUTO) 0 % (0-10); EOSINOPHILS % (AUTO) 0 % (0-10); HEMATOCRIT 39 % (35-52); LYMPHOCYTES # (AUTO) 0.3 10^3/uL (1.0-4.0); LYMPHOCYTES % (AUTO) 4 % (12-44); MEAN CORPUSCULAR HEMOGLOBIN 30 pg (25-34); MEAN CORPUSCULAR HGB CONC 33 g/dL (32-36); MEAN CORPUSCULAR VOLUME 90 fL (80-99); MEAN PLATELET VOLUME 9.3 fL (9.0-12.2); MONOCYTES # (AUTO) 0.1 10^3/uL (0.0-1.0); MONOCYTES % (AUTO) 1 % (0-12); NEUTROPHILS % (AUTO) 94 % (42-75); PLATELET COUNT 222 10^3/uL (130-400); WHITE BLOOD COUNT 6.4 10^3/uL (4.3-11.0)
[2020-06-04 10:06] LABS: ALANINE AMINOTRANSFERASE 12 U/L (0-55); ALBUMIN 4.2 GM/DL (3.2-4.5); ALKALINE PHOSPHATASE 80 U/L (40-136); BILIRUBIN,TOTAL 0.4 MG/DL (0.1-1.0); BUN/CREATININE RATIO 11; CALCIUM 9.2 MG/DL (8.5-10.1); CARBON DIOXIDE 20 MMOL/L (21-32); CHLORIDE 105 MMOL/L (98-107); CREATININE SERUM 0.84 MG/DL (0.60-1.30); GFR ESTIMATED > 60; GLUCOSE 193 MG/DL (70-105); MAGNESIUM 3.6 MG/DL (1.6-2.4); POTASSIUM 3.8 MMOL/L (3.6-5.0); SODIUM 139 MMOL/L (135-145); TOTAL PROTEIN 7.3 GM/DL (6.4-8.2)
[2020-06-11 08:39] LABS: BASOPHILS # (AUTO) 0.1 10^3/uL (0.0-0.1); BASOPHILS % (AUTO) 1 % (0-10); EOSINOPHILS # (AUTO) 0.1 10^3/uL (0.0-0.3); EOSINOPHILS % (AUTO) 1 % (0-10); HEMATOCRIT 38 % (35-52); HEMOGLOBIN 12.3 g/dL (11.5-16.0); LYMPHOCYTES # (AUTO) 1.6 10^3/uL (1.0-4.0); LYMPHOCYTES % (AUTO) 12 % (12-44); MEAN CORPUSCULAR HEMOGLOBIN 30 pg (25-34); MEAN CORPUSCULAR HGB CONC 33 g/dL (32-36); MEAN CORPUSCULAR VOLUME 92 fL (80-99); MEAN PLATELET VOLUME 9.6 fL (9.0-12.2); MONOCYTES # (AUTO) 0.9 10^3/uL (0.0-1.0); MONOCYTES % (AUTO) 6 % (0-12); NEUTROPHILS % (AUTO) 73 % (42-75); PLATELET COUNT 172 10^3/uL (130-400); WHITE BLOOD COUNT 13.7 10^3/uL (4.3-11.0)
[2020-06-11 08:55] LABS: BUN/CREATININE RATIO 10; CALCIUM 8.5 MG/DL (8.5-10.1); CARBON DIOXIDE 25 MMOL/L (21-32); CHLORIDE 107 MMOL/L (98-107); CREATININE SERUM 0.78 MG/DL (0.60-1.30); GFR ESTIMATED > 60; GLUCOSE 147 MG/DL (70-105); POTASSIUM 3.3 MMOL/L (3.6-5.0); SODIUM 141 MMOL/L (135-145)
[2020-06-18 14:39] LABS: BASOPHILS % (AUTO) 0 % (0-10); EOSINOPHILS # (AUTO) 0.1 10^3/uL (0.0-0.3); EOSINOPHILS % (AUTO) 1 % (0-10); HEMATOCRIT 40 % (35-52); HEMOGLOBIN 13.1 g/dL (11.5-16.0); LYMPHOCYTES # (AUTO) 1.6 10^3/uL (1.0-4.0); LYMPHOCYTES % (AUTO) 20 % (12-44); MEAN CORPUSCULAR HEMOGLOBIN 30 pg (25-34); MEAN CORPUSCULAR HGB CONC 32 g/dL (32-36); MEAN CORPUSCULAR VOLUME 93 fL (80-99); MEAN PLATELET VOLUME 9.8 fL (9.0-12.2); MONOCYTES # (AUTO) 0.5 10^3/uL (0.0-1.0); MONOCYTES % (AUTO) 6 % (0-12); NEUTROPHILS # (AUTO) 5.5 10^3/uL (1.8-7.8); NEUTROPHILS % (AUTO) 70 % (42-75); PLATELET COUNT 178 10^3/uL (130-400); WHITE BLOOD COUNT 7.8 10^3/uL (4.3-11.0)
[2020-06-18 15:12] LABS: CHLORIDE 105 MMOL/L (98-107); POTASSIUM 3.6 MMOL/L (3.6-5.0); SODIUM 140 MMOL/L (135-145)
[2020-06-18 15:14] LABS: GLUCOSE 172 MG/DL (70-105)
[2020-06-18 15:15] LABS: CARBON DIOXIDE 22 MMOL/L (21-32)
[2020-06-18 15:18] LABS: CREATININE SERUM 0.78 MG/DL (0.60-1.30); GFR ESTIMATED > 60
[2020-06-18 15:19] LABS: BUN/CREATININE RATIO 12
[~2020-06-25 10:30] MED LIST changes: -PEGFILGRASTIM 6 MG/0.6ML NEULASTA SC SCH; +diphenhydrAMINE 50 MG/ML INJ (CANCER CENTER) ONE
[2020-06-25 10:51] LABS: BASOPHILS % (AUTO) 0 % (0-10); EOSINOPHILS # (AUTO) 0.1 10^3/uL (0.0-0.3); EOSINOPHILS % (AUTO) 1 % (0-10); HEMATOCRIT 38 % (35-52); HEMOGLOBIN 12.4 g/dL (11.5-16.0); LYMPHOCYTES # (AUTO) 1.2 10^3/uL (1.0-4.0); LYMPHOCYTES % (AUTO) 15 % (12-44); MEAN CORPUSCULAR HEMOGLOBIN 30 pg (25-34); MEAN CORPUSCULAR HGB CONC 33 g/dL (32-36); MEAN CORPUSCULAR VOLUME 92 fL (80-99); MEAN PLATELET VOLUME 9.4 fL (9.0-12.2); MONOCYTES # (AUTO) 0.5 10^3/uL (0.0-1.0); MONOCYTES % (AUTO) 7 % (0-12); NEUTROPHILS # (AUTO) 5.8 10^3/uL (1.8-7.8); NEUTROPHILS % (AUTO) 76 % (42-75); PLATELET COUNT 169 10^3/uL (130-400); WHITE BLOOD COUNT 7.6 10^3/uL (4.3-11.0)
[2020-06-25 11:14] LABS: ALANINE AMINOTRANSFERASE 10 U/L (0-55); ALBUMIN 3.5 GM/DL (3.2-4.5); ALKALINE PHOSPHATASE 69 U/L (40-136); BILIRUBIN,TOTAL 0.2 MG/DL (0.1-1.0); BUN/CREATININE RATIO 8; CALCIUM 8.3 MG/DL (8.5-10.1); CARBON DIOXIDE 27 MMOL/L (21-32); CHLORIDE 106 MMOL/L (98-107); CREATININE SERUM 0.71 MG/DL (0.60-1.30); GFR ESTIMATED > 60; GLUCOSE 140 MG/DL (70-105); MAGNESIUM 1.7 MG/DL (1.6-2.4); POTASSIUM 3.5 MMOL/L (3.6-5.0); SODIUM 140 MMOL/L (135-145); TOTAL PROTEIN 6.3 GM/DL (6.4-8.2)
[2020-08-13] MEDS ORDERED: ACHD5005 PO (15:53)
== END 2020-08-12 | disposition home or self-care (01) ==
LOC: ONC 10:30
PROVIDERS: ATTEND Internal Medicine Hematology & Oncology
DX: Z51.11 Encounter for antineoplastic chemotherapy (principal); C54.1 Malignant neoplasm of endometrium; C79.62 Secondary malignant neoplasm of left ovary; C79.61 Secondary malignant neoplasm of right ovary; Z87.891 Personal history of nicotine dependence; Z90.710 Acquired absence of both cervix and uterus; Z79.891 Long term (current) use of opiate analgesic; Z79.899 Other long term (current) drug therapy
CPT/HCPCS: 80053; 83735; 85025; 96367; 96375; 96413; 96415; 96417; G0463; 36591; 80048; 96372

== ENCOUNTER 2020-08-13 13:57 | Emergency (ER) | payer MEDICAID ==
[~2020-08-13] VITALS: Ht 175.3 cm; Wt 122.5 kg
[~2020-08-13 13:57] MED LIST changes: -FAMOTIDINE 20MG/2ML IV (CANCER CTR) IV SCH; -FOSAPREPITANT (CANCER CENTER) 150 MG in NS (IVPB) CANCER CENTER ONLY 150 ML IV SCH; -NORMAL SALINE IV SCH; -NS IV 1000 ML (CANCER CTR) IV SCH; -PACLITAXEL IV SCH; -PEGFILGRASTIM-BMEZ 6 MG/0.6 ML ZIEXTENZO SQ SCH; -diphenhydrAMINE 25 MG TAB (BENADRYL) CANCER CENTER PO ONE; -diphenhydrAMINE 25 MG TAB (BENADRYL) CANCER CENTER PO SCH; -diphenhydrAMINE 50 MG/ML INJ (CANCER CENTER) IV PRN; -diphenhydrAMINE 50 MG/ML INJ (CANCER CENTER) ONE
--- NOTE | 2020-08-13 14:12 | ED Abdominal Pain ---
General Chief Complaint: Abdominal/GI Problems Stated Complaint: GENERLIZED WEAKNESS Source of Information: Patient Exam Limitations: No Limitations History of Present Illness Date Seen by Provider: Aug 13, 2020 Time Seen by Provider: 14:12 Initial Comments This is a 40-year-old female who presents to the ER with complaints of abdominal pain, headache, vision changes. Allergies and Home Medications Allergies Coded Allergies: amoxicillin (Unverified Allergy, Mild, HIVES, 05/30/08) aspirin (Unverified Allergy, Unknown, 01/13/14) Home Medications Hydrocodone Bit/Acetaminophen 1 Ea Tablet, 1 TAB PO Q4H PRN for PAIN-MILD TO MODERATE, (Reported) Sulfamethoxazole/Trimethoprim 1 Each Tablet, 1 EACH PO BID, (Reported) Past Arleozh-Ahhhzl-Soxoju Hx Patient Social History Tobacco Use?: No Smoking Status: Former Smoker Substance use?: No Alcohol Use?: No Immunizations Up To Date Tetanus Booster (TDap): Unknown Seasonal Allergies Seasonal Allergies: No Past Medical History Surgeries: Yes Adenoidectomy, Tonsillectomy Respiratory: Yes Asthma Cardiac: No Neurological: No Gastrointestinal: No Musculoskeletal: Yes Arthritis Endocrine: No Cancer: No Psychosocial: No Family Medical History Patient reports no known family medical history. Physical Exam Vital Signs Vital Signs - First Documented 08/13/20 13:58 Temp 36.7 Pulse 89 Resp 16 B/P (MAP) 137/68 (91) Pulse Ox 98 O2 Delivery Room Air Capillary Refill : Height/Weight/BMI Height: 5'9.00" Weight: 267lbs. 0.0oz. 121.169945qj; 39.4 BMI Method:Stated Focused Exam Lactate Level 08/13/20 14:45: Lactic Acid Level 1.03 Lactic Acid Level Laboratory Tests Test 08/13/20 14:45 Lactic Acid Level 1.03 MMOL/L (0.50-2.00) Progress/Results/Core Measures Results/Orders Lab Results Laboratory Tests Test 08/13/20 14:45 08/13/20 15:40 Range/Units White Blood Count 8.1 4.3-11.0 10^3/uL Red Blood Count 4.48 3.80-5.11 10^6/uL Hemoglobin 12.9 11.5-16.0 g/dL Hematocrit 40 35-52 % Mean Corpuscular Volume 88 80-99 fL Mean Corpuscular Hemoglobin 29 25-34 pg Mean Corpuscular Hemoglobin Concent 33 32-36 g/dL Red Cell Distribution Width 12.6 10.0-14.5 % Platelet Count 226 130-400 10^3/uL Mean Platelet Volume 9.4 9.0-12.2 fL Immature Granulocyte % (Auto) 0 % Neutrophils (%) (Auto) 73 42-75 % Lymphocytes (%) (Auto) 18 12-44 % Monocytes (%) (Auto) 7 0-12 % Eosinophils (%) (Auto) 1 0-10 % Basophils (%) (Auto) 0 0-10 % Neutrophils # (Auto) 5.9 1.8-7.8 10^3/uL Lymphocytes # (Auto) 1.5 1.0-4.0 10^3/uL Monocytes # (Auto) 0.6 0.0-1.0 10^3/uL Eosinophils # (Auto) 0.1 0.0-0.3 10^3/uL Basophils # (Auto) 0.0 0.0-0.1 10^3/uL Immature Granulocyte # (Auto) 0.0 0.0-0.1 10^3/uL Sodium Level 143 135-145 MMOL/L Potassium Level 3.9 3.6-5.0 MMOL/L Chloride Level 108 H 98-107 MMOL/L Carbon Dioxide Level 26 21-32 MMOL/L Anion Gap 9 5-14 MMOL/L Blood Urea Nitrogen 8 7-18 MG/DL Creatinine 0.73 0.60-1.30 MG/DL Estimat Glomerular Filtration Rate > 60 BUN/Creatinine Ratio 11 Glucose Level 97 70-105 MG/DL Lactic Acid Level 1.03 0.50-2.00 MMOL/L Calcium Level 9.0 8.5-10.1 MG/DL Corrected Calcium 9.2 8.5-10.1 MG/DL Total Bilirubin 0.3 0.1-1.0 MG/DL Aspartate Amino Transf (AST/SGOT) 11 5-34 U/L Alanine Aminotransferase (ALT/SGPT) 13 0-55 U/L Alkaline Phosphatase 72 40-136 U/L Total Protein 6.7 6.4-8.2 GM/DL Albumin 3.7 3.2-4.5 GM/DL Procalcitonin 0.02 <0.10 NG/ML My Orders Orders - SOLEDAD CHAMPION APRN Cbc With Automated Diff (08/13/20 14:09) Comprehensive Metabolic Panel (08/13/20 14:09) Blood Culture (08/13/20 14:09) Sputum Culture (08/13/20 14:09) Urinalysis (08/13/20 14:09) Urine Culture (08/13/20 14:09) Protime With Inr (08/13/20 14:09) Partial Thromboplastin Time (08/13/20 14:09) Chest 1 View, Ap/Pa Only (08/13/20 14:09) Ed Iv/Invasive Line Start (08/13/20 14:09) Vital Signs Adult Sepsis Patie Q15M (08/13/20 14:09) O2 (08/13/20 14:09) Lactic Acid Analyzer (08/13/20 14:09) Procalcitonin (Pct) (08/13/20 14:09) Fentanyl Inj (Sublimaze Injection) (08/13/20 14:15) Ct Head Wo (08/13/20 14:09) Medications Given in ED Current Medications Medications Dose Ordered Sig/Renny Route Start Time Stop Time Status Last Admin Dose Admin Fentanyl Citrate 50 mcg ONCE ONCE IVP 08/13/20 14:15 08/13/20 14:16 DC 08/13/20 14:53 50 MCG Vital Signs/I&O 08/13/20 08/13/20 08/13/20 13:58 15:43 15:45 Temp 36.7 Pulse 89 89 89 Resp 16 16 16 B/P (MAP) 137/68 (91) 119/77 119/77 Pulse Ox 98 99 99 O2 Delivery Room Air Room Air Room Air Departure Impression Primary Impression: Abdominal pain Disposition: HOME, SELF-CARE Condition: Improved Departure-Patient Inst. Decision time for Depature: 15:43 Referrals: [facility] (PCP) Primary Care Physician VERE[facility] MOLINA (Family) Primary Care Physician Patient Instructions: Acute Pain, Adult (DC) Add. Discharge Instructions: Plan: 1. Keep follow up with your Oncologist next week as scheduled. 2. Use Miralax daily to twice a day to achieve soft stools. Decrease if you are experiencing diarrhea. 3. Return if you develop any new, concerning, or worsening symptoms. 4. All discharge instructions reviewed with patient and/or family. Voiced understanding. Scripts Hydrocodone/Acetaminophen (Hydrocodone-Acetamin 5-325 mg) 1 Each Tablet 1 TAB PO Q4H PRN for PAIN-MODERATE (5-7), #14 TAB 0 Refills Prov: SOLEDAD CHAMPION SENIOR STRATEGY ANALYST 08/13/20 SOLEDAD CHAMPION SENIOR STRATEGY ANALYST Aug 13, 2020 14:12
[2020-08-13] MEDS ORDERED: fentaNYL INJ 100 MCG/2 ML AMP IVP ONE (14:15)
[2020-08-13 14:54] LABS: BASOPHILS % (AUTO) 0 % (0-10); EOSINOPHILS # (AUTO) 0.1 10^3/uL (0.0-0.3); EOSINOPHILS % (AUTO) 1 % (0-10); HEMATOCRIT 40 % (35-52); HEMOGLOBIN 12.9 g/dL (11.5-16.0); LYMPHOCYTES # (AUTO) 1.5 10^3/uL (1.0-4.0); LYMPHOCYTES % (AUTO) 18 % (12-44); MEAN CORPUSCULAR HEMOGLOBIN 29 pg (25-34); MEAN CORPUSCULAR HGB CONC 33 g/dL (32-36); MEAN CORPUSCULAR VOLUME 88 fL (80-99); MEAN PLATELET VOLUME 9.4 fL (9.0-12.2); MONOCYTES # (AUTO) 0.6 10^3/uL (0.0-1.0); MONOCYTES % (AUTO) 7 % (0-12); NEUTROPHILS # (AUTO) 5.9 10^3/uL (1.8-7.8); NEUTROPHILS % (AUTO) 73 % (42-75); PLATELET COUNT 226 10^3/uL (130-400); WHITE BLOOD COUNT 8.1 10^3/uL (4.3-11.0)
[2020-08-13 15:05] LABS: ALBUMIN 3.7 GM/DL (3.2-4.5); CHLORIDE 108 MMOL/L (98-107); POTASSIUM 3.9 MMOL/L (3.6-5.0)
[2020-08-13 15:06] LABS: SODIUM 143 MMOL/L (135-145)
[2020-08-13 15:08] LABS: GLUCOSE 97 MG/DL (70-105); TOTAL PROTEIN 6.7 GM/DL (6.4-8.2)
[2020-08-13 15:09] LABS: CARBON DIOXIDE 26 MMOL/L (21-32)
[2020-08-13 15:10] LABS: BILIRUBIN,TOTAL 0.3 MG/DL (0.1-1.0)
[2020-08-13 15:11] LABS: ALKALINE PHOSPHATASE 72 U/L (40-136); CREATININE SERUM 0.73 MG/DL (0.60-1.30); GFR ESTIMATED > 60
[2020-08-13 15:13] LABS: BUN/CREATININE RATIO 11
[2020-08-13 15:14] LABS: ALANINE AMINOTRANSFERASE 13 U/L (0-55)
--- NOTE | 2020-08-13 15:34 | Diagnostic Imaging Report ---
Indication: Chest pain and sepsis Frontal chest obtained at 3:09 p.m. Heart and mediastinal silhouette are normal in appearance. The lungs are clear. There is no pneumothorax or pleural fluid. Impression: Negative chest. Dictated by: Dictated on workstation # [id number]
--- NOTE | 2020-08-13 15:40 | Diagnostic Imaging Report ---
INDICATION: Headache and visual changes. TECHNIQUE: Multiple contiguous axial images were obtained through the brain without the use of intravenous contrast. Auto Exposure Controls were utilized during the CT exam to meet ALARA standards for radiation dose reduction. COMPARISON: There is no previous study for comparison. FINDINGS: There are no extra-axial fluid collections. No intracranial hemorrhage. No intracranial mass or mass effect. No midline shift. The ventricles are normal in size and position. There are no focal parenchymal abnormalities in the brain. The calvarial windows are unremarkable. IMPRESSION: Negative noncontrast brain CT. Dictated by: Dictated on workstation # [id number]
[2020-08-13 15:45] VITALS: BP 119/77
[2020-08-13] MEDS ORDERED: ACHD5005 PO (15:53)
[2020-08-13 16:11] LABS: INR 0.9 (0.8-1.4); PROTHROMBIN TIME PATIENT 12.9 SEC (12.2-14.7)
== END 2020-08-13 16:02 | disposition home or self-care (01) ==
LOC: EDUNIT# 13:57 → ER 13:58
DX: R10.9 Unspecified abdominal pain (principal); J45.909 Unspecified asthma, uncomplicated; Z87.891 Personal history of nicotine dependence
CPT/HCPCS: 36415; 70450; 71045; 80053; 83605; 84145; 85025; 85610; 85730; 87040

== ENCOUNTER → 2020-08-25 | Outpatient (CLI) | payer MEDICAID ==
[~2020-08-25] MED LIST changes: +ACHD5005 PO
== END ==
LOC: CARD 10:06
PROVIDERS: ATTEND Internal Medicine Hematology & Oncology
DX: I51.7 Cardiomegaly (principal); C55 Malignant neoplasm of uterus, part unspecified; Z79.899 Other long term (current) drug therapy
CPT/HCPCS: 93306

== ENCOUNTER → 2020-09-04 | Outpatient (CLI) | payer MEDICAID ==
--- NOTE | 2020-09-04 09:48 | Diagnostic Imaging Report ---
INDICATION: Pain. Three views of the right shoulder were obtained. FINDINGS: The alignment is normal. There is no fracture or dislocation. Right lung is clear. Soft tissues are unremarkable. IMPRESSION: No focal abnormality in the right shoulder Dictated by: Dictated on workstation # [id number]
--- NOTE | 2020-09-04 09:49 | Diagnostic Imaging Report ---
INDICATION: Pain. Two views of the right humerus were obtained. FINDINGS: The osseous alignment is normal. There is no acute fracture or dislocation. The soft tissues are unremarkable. IMPRESSION: No acute abnormality. Dictated by: Dictated on workstation # [id number]
== END ==
LOC: RAD 08:03
PROVIDERS: ATTEND Nurse Practitioner Adult Health
DX: M25.511 Pain in right shoulder (principal); M79.621 Pain in right upper arm
CPT/HCPCS: 73030; 73060

== ENCOUNTER → 2020-11-13 | Outpatient (CLI) | payer MEDICAID ==
[~2020-11-13] MED LIST changes: +BARIUM SUSPENSION 2.1% (VANILLA SILQ) 450 ML PO ONE; +CATHETER FLUSH 10 ML SYR IV PRN; +HOLD METFORMIN - RECEIVED CONTRAST 20 ML VIAL IV SCH; +IOHEXOL 350 MG/ML 100 ML (OMNIPAQUE 350) VIAL IV ONE; +NS 100 ML (IVPB) BAG IV ONE
--- NOTE | 2020-11-13 10:43 | Diagnostic Imaging Report ---
PROCEDURE: CT chest with contrast, CT abdomen and pelvis with and without contrast. TECHNIQUE: Pre and post intravenous contrast axial imaging of the abdomen and pelvis and post contrast axial imaging of the chest were performed. Auto Exposure Controls were utilized during the CT exam to meet ALARA standards for radiation dose reduction. INDICATION: Malignant neoplasm of the uterus. CT CHEST: No axillary lymphadenopathy is detected. There appears to be a central line with tip in the SVC. No mediastinal or hilar lymphadenopathy is identified. No pericardial or pleural fluid is detected. No pulmonary nodules, masses or infiltrates are detected. Bony structures are unremarkable. CT abdomen and pelvis: Correlation is made with prior CT abdomen and pelvis from 09/08/2013. There are 2 low-density lesions within the liver, not present on prior CT. Lesion in the dome of the right lobe measures 12 mm. A lesion more inferiorly in the right lobe measures 14 mm. These are indeterminate. Gallbladder is unremarkable. There is no biliary duct dilatation. The pancreas and spleen are unremarkable. No adrenal mass is identified. Kidneys are unremarkable. Aorta is nonaneurysmal. No central retroperitoneal or mesenteric lymphadenopathy is detected. The bowel loops are normal caliber. There is no obstruction. Uterus is surgically absent. Bladder is unremarkable. No definite pelvic lymphadenopathy is detected. Bony structures are unremarkable. IMPRESSION: 1. Unremarkable CT of the chest. No thoracic lymphadenopathy or pulmonary metastatic disease is detected. 2. No evidence of abdominal or pelvic lymphadenopathy. There are 2 low attenuation lesions within the liver which were not present in 2014. These are too small to accurately characterize. Close follow-up is recommended. Consideration could be given to performance of a MRI of the liver for better characterization. Dictated by: Dictated on workstation # [id number]
== END ==
LOC: RAD 09:03
PROVIDERS: ATTEND Nurse Practitioner Adult Health
DX: Z51.11 Encounter for antineoplastic chemotherapy (principal); C55 Malignant neoplasm of uterus, part unspecified; C78.6 Secondary malignant neoplasm of retroperitoneum and peritoneum
CPT/HCPCS: 71260; 74178

== ENCOUNTER → 2020-11-24 | Outpatient (RCR) | payer MEDICAID ==
[2020-09-04 09:46] LABS: BASOPHILS % (AUTO) 0 % (0-10); EOSINOPHILS # (AUTO) 0.1 10^3/uL (0.0-0.3); EOSINOPHILS % (AUTO) 2 % (0-10); HEMATOCRIT 40 % (35-52); HEMOGLOBIN 12.8 g/dL (11.5-16.0); LYMPHOCYTES # (AUTO) 1.4 10^3/uL (1.0-4.0); LYMPHOCYTES % (AUTO) 21 % (12-44); MEAN CORPUSCULAR HEMOGLOBIN 28 pg (25-34); MEAN CORPUSCULAR HGB CONC 32 g/dL (32-36); MEAN CORPUSCULAR VOLUME 88 fL (80-99); MEAN PLATELET VOLUME 9.2 fL (9.0-12.2); MONOCYTES # (AUTO) 0.5 10^3/uL (0.0-1.0); MONOCYTES % (AUTO) 8 % (0-12); NEUTROPHILS # (AUTO) 4.6 10^3/uL (1.8-7.8); NEUTROPHILS % (AUTO) 69 % (42-75); PLATELET COUNT 192 10^3/uL (130-400); WHITE BLOOD COUNT 6.8 10^3/uL (4.3-11.0)
[2020-09-04 10:05] LABS: ALBUMIN 3.6 GM/DL (3.2-4.5); BILIRUBIN,TOTAL 0.4 MG/DL (0.1-1.0); CALCIUM 8.7 MG/DL (8.5-10.1); CREATININE SERUM 0.8 MG/DL (0.60-1.30); POTASSIUM 3.6 MMOL/L (3.6-5.0); TOTAL PROTEIN 6.7 GM/DL (6.4-8.2)
[2020-09-12 13:54] LABS: BASOPHILS % (AUTO) 0 % (0-10); EOSINOPHILS # (AUTO) 0.1 10^3/uL (0.0-0.3); EOSINOPHILS % (AUTO) 1 % (0-10); HEMATOCRIT 40 % (35-52); HEMOGLOBIN 12.9 g/dL (11.5-16.0); LYMPHOCYTES # (AUTO) 1.4 10^3/uL (1.0-4.0); LYMPHOCYTES % (AUTO) 20 % (12-44); MEAN CORPUSCULAR HEMOGLOBIN 28 pg (25-34); MEAN CORPUSCULAR HGB CONC 32 g/dL (32-36); MEAN CORPUSCULAR VOLUME 88 fL (80-99); MEAN PLATELET VOLUME 9.4 fL (9.0-12.2); MONOCYTES # (AUTO) 0.4 10^3/uL (0.0-1.0); MONOCYTES % (AUTO) 6 % (0-12); NEUTROPHILS % (AUTO) 72 % (42-75); PLATELET COUNT 185 10^3/uL (130-400)
[2020-09-12 14:16] LABS: CREATININE SERUM 0.76 MG/DL (0.60-1.30); POTASSIUM 3.8 MMOL/L (3.6-5.0)
[2020-09-22 10:05] LABS: BASOPHILS % (AUTO) 1 % (0-10); EOSINOPHILS # (AUTO) 0.1 10^3/uL (0.0-0.3); EOSINOPHILS % (AUTO) 2 % (0-10); HEMATOCRIT 39 % (35-52); HEMOGLOBIN 12.7 g/dL (11.5-16.0); LYMPHOCYTES # (AUTO) 1.2 10^3/uL (1.0-4.0); LYMPHOCYTES % (AUTO) 20 % (12-44); MEAN CORPUSCULAR HEMOGLOBIN 29 pg (25-34); MEAN CORPUSCULAR HGB CONC 33 g/dL (32-36); MEAN CORPUSCULAR VOLUME 88 fL (80-99); MEAN PLATELET VOLUME 9.2 fL (9.0-12.2); MONOCYTES # (AUTO) 0.7 10^3/uL (0.0-1.0); MONOCYTES % (AUTO) 12 % (0-12); NEUTROPHILS # (AUTO) 4.1 10^3/uL (1.8-7.8); NEUTROPHILS % (AUTO) 66 % (42-75); PLATELET COUNT 163 10^3/uL (130-400); WHITE BLOOD COUNT 6.1 10^3/uL (4.3-11.0)
[2020-09-22 10:26] LABS: CALCIUM 9.4 MG/DL (8.5-10.1); CREATININE SERUM 0.85 MG/DL (0.60-1.30); POTASSIUM 3.8 MMOL/L (3.6-5.0)
[2020-10-01 13:09] LABS: BASOPHILS % (AUTO) 0 % (0-10); EOSINOPHILS # (AUTO) 0.1 10^3/uL (0.0-0.3); EOSINOPHILS % (AUTO) 1 % (0-10); HEMATOCRIT 39 % (35-52); HEMOGLOBIN 12.9 g/dL (11.5-16.0); LYMPHOCYTES # (AUTO) 1.5 10^3/uL (1.0-4.0); LYMPHOCYTES % (AUTO) 20 % (12-44); MEAN CORPUSCULAR HEMOGLOBIN 29 pg (25-34); MEAN CORPUSCULAR HGB CONC 33 g/dL (32-36); MEAN CORPUSCULAR VOLUME 86 fL (80-99); MEAN PLATELET VOLUME 9.4 fL (9.0-12.2); MONOCYTES # (AUTO) 0.6 10^3/uL (0.0-1.0); MONOCYTES % (AUTO) 9 % (0-12); NEUTROPHILS # (AUTO) 5.1 10^3/uL (1.8-7.8); NEUTROPHILS % (AUTO) 69 % (42-75); PLATELET COUNT 198 10^3/uL (130-400); WHITE BLOOD COUNT 7.4 10^3/uL (4.3-11.0)
[2020-10-01 13:36] LABS: ALBUMIN 3.7 GM/DL (3.2-4.5); BILIRUBIN,TOTAL 0.4 MG/DL (0.1-1.0); CALCIUM 9.6 MG/DL (8.5-10.1); CREATININE SERUM 0.75 MG/DL (0.60-1.30); TOTAL PROTEIN 6.7 GM/DL (6.4-8.2)
[2020-10-10 13:10] LABS: BASOPHILS % (AUTO) 0 % (0-10); EOSINOPHILS % (AUTO) 0 % (0-10); HEMATOCRIT 40 % (35-52); HEMOGLOBIN 12.9 g/dL (11.5-16.0); LYMPHOCYTES # (AUTO) 1.6 10^3/uL (1.0-4.0); LYMPHOCYTES % (AUTO) 18 % (12-44); MEAN CORPUSCULAR HEMOGLOBIN 29 pg (25-34); MEAN CORPUSCULAR HGB CONC 32 g/dL (32-36); MEAN CORPUSCULAR VOLUME 88 fL (80-99); MEAN PLATELET VOLUME 9.5 fL (9.0-12.2); MONOCYTES # (AUTO) 0.7 10^3/uL (0.0-1.0); MONOCYTES % (AUTO) 7 % (0-12); NEUTROPHILS # (AUTO) 6.8 10^3/uL (1.8-7.8); NEUTROPHILS % (AUTO) 74 % (42-75); PLATELET COUNT 202 10^3/uL (130-400); WHITE BLOOD COUNT 9.2 10^3/uL (4.3-11.0)
[2020-10-10 13:23] LABS: CALCIUM 9.6 MG/DL (8.5-10.1); CREATININE SERUM 0.8 MG/DL (0.60-1.30); POTASSIUM 3.7 MMOL/L (3.6-5.0)
[2020-10-15 12:50] LABS: BASOPHILS % (AUTO) 0 % (0-10); EOSINOPHILS # (AUTO) 0.1 10^3/uL (0.0-0.3); EOSINOPHILS % (AUTO) 1 % (0-10); HEMATOCRIT 40 % (35-52); LYMPHOCYTES # (AUTO) 1.3 10^3/uL (1.0-4.0); LYMPHOCYTES % (AUTO) 18 % (12-44); MEAN CORPUSCULAR HEMOGLOBIN 28 pg (25-34); MEAN CORPUSCULAR HGB CONC 32 g/dL (32-36); MEAN CORPUSCULAR VOLUME 88 fL (80-99); MEAN PLATELET VOLUME 9.7 fL (9.0-12.2); MONOCYTES # (AUTO) 0.6 10^3/uL (0.0-1.0); MONOCYTES % (AUTO) 8 % (0-12); NEUTROPHILS # (AUTO) 5.2 10^3/uL (1.8-7.8); NEUTROPHILS % (AUTO) 73 % (42-75); PLATELET COUNT 197 10^3/uL (130-400); WHITE BLOOD COUNT 7.2 10^3/uL (4.3-11.0)
[2020-10-15 13:01] LABS: POTASSIUM 3.9 MMOL/L (3.6-5.0)
[2020-10-15 13:06] LABS: CREATININE SERUM 0.73 MG/DL (0.60-1.30)
[2020-10-22 15:54] LABS: BASOPHILS % (AUTO) 1 % (0-10); EOSINOPHILS # (AUTO) 0.1 10^3/uL (0.0-0.3); EOSINOPHILS % (AUTO) 1 % (0-10); HEMATOCRIT 42 % (35-52); HEMOGLOBIN 13.8 g/dL (11.5-16.0); LYMPHOCYTES # (AUTO) 1.4 10^3/uL (1.0-4.0); LYMPHOCYTES % (AUTO) 20 % (12-44); MEAN CORPUSCULAR HEMOGLOBIN 29 pg (25-34); MEAN CORPUSCULAR HGB CONC 33 g/dL (32-36); MEAN CORPUSCULAR VOLUME 88 fL (80-99); MEAN PLATELET VOLUME 9.3 fL (9.0-12.2); MONOCYTES # (AUTO) 0.6 10^3/uL (0.0-1.0); MONOCYTES % (AUTO) 8 % (0-12); NEUTROPHILS # (AUTO) 5.1 10^3/uL (1.8-7.8); NEUTROPHILS % (AUTO) 70 % (42-75); PLATELET COUNT 201 10^3/uL (130-400); WHITE BLOOD COUNT 7.3 10^3/uL (4.3-11.0)
[2020-10-22 16:16] LABS: CREATININE SERUM 0.82 MG/DL (0.60-1.30); POTASSIUM 3.9 MMOL/L (3.6-5.0)
[2020-10-28 11:13] LABS: BASOPHILS % (AUTO) 0 % (0-10); EOSINOPHILS % (AUTO) 1 % (0-10); HEMATOCRIT 42 % (35-52); HEMOGLOBIN 14.1 g/dL (11.5-16.0); LYMPHOCYTES # (AUTO) 1.4 10^3/uL (1.0-4.0); LYMPHOCYTES % (AUTO) 19 % (12-44); MEAN CORPUSCULAR HEMOGLOBIN 29 pg (25-34); MEAN CORPUSCULAR HGB CONC 34 g/dL (32-36); MEAN CORPUSCULAR VOLUME 86 fL (80-99); MEAN PLATELET VOLUME 9.2 fL (9.0-12.2); MONOCYTES # (AUTO) 0.6 10^3/uL (0.0-1.0); MONOCYTES % (AUTO) 8 % (0-12); NEUTROPHILS # (AUTO) 5.5 10^3/uL (1.8-7.8); NEUTROPHILS % (AUTO) 72 % (42-75); PLATELET COUNT 192 10^3/uL (130-400); WHITE BLOOD COUNT 7.6 10^3/uL (4.3-11.0)
[2020-10-28 11:31] LABS: ALBUMIN 3.9 GM/DL (3.2-4.5); BILIRUBIN,TOTAL 0.4 MG/DL (0.1-1.0); CALCIUM 9.5 MG/DL (8.5-10.1); CREATININE SERUM 0.76 MG/DL (0.60-1.30); POTASSIUM 3.9 MMOL/L (3.6-5.0)
[~2020-11-24] VITALS: Ht 175.3 cm; Wt 127.0 kg
[~2020-11-24] MED LIST changes: -BARIUM SUSPENSION 2.1% (VANILLA SILQ) 450 ML PO ONE; -CATHETER FLUSH 10 ML SYR IV PRN; +D5W 500 ML IV (CANCER CTR) 500 ML IV SCH; +D5W IV SCH; +DOXORUBICIN LIPOSOMAL INJECT IV SCH; +FOSAPREPITANT (CANCER CENTER) 150 MG in NS (IVPB) CANCER CENTER ONLY 150 ML IV SCH; -HOLD METFORMIN - RECEIVED CONTRAST 20 ML VIAL IV SCH; -IOHEXOL 350 MG/ML 100 ML (OMNIPAQUE 350) VIAL IV ONE; -NS 100 ML (IVPB) BAG IV ONE; +NS IV 1000 ML (CANCER CTR) 1,000 ML IV SCH; +PEMBROLIZUMAB 200 MG in NS (IVPB) CANCER CENTER 50 ML IV SCH; +[UNRECOGNIZED DRUG - OTHER] IV SCH
[2020-11-24 13:35] LABS: BASOPHILS % (AUTO) 0 % (0-10); EOSINOPHILS # (AUTO) 0.1 10^3/uL (0.0-0.3); EOSINOPHILS % (AUTO) 1 % (0-10); HEMATOCRIT 38 % (35-52); HEMOGLOBIN 12.8 g/dL (11.5-16.0); LYMPHOCYTES # (AUTO) 1.5 10^3/uL (1.0-4.0); LYMPHOCYTES % (AUTO) 20 % (12-44); MEAN CORPUSCULAR HEMOGLOBIN 29 pg (25-34); MEAN CORPUSCULAR HGB CONC 34 g/dL (32-36); MEAN CORPUSCULAR VOLUME 87 fL (80-99); MEAN PLATELET VOLUME 9.5 fL (9.0-12.2); MONOCYTES # (AUTO) 0.5 10^3/uL (0.0-1.0); MONOCYTES % (AUTO) 7 % (0-12); NEUTROPHILS # (AUTO) 5.4 10^3/uL (1.8-7.8); NEUTROPHILS % (AUTO) 72 % (42-75); PLATELET COUNT 188 10^3/uL (130-400); WHITE BLOOD COUNT 7.6 10^3/uL (4.3-11.0)
[2020-11-24 14:15] LABS: ALBUMIN 3.8 GM/DL (3.2-4.5); BILIRUBIN,TOTAL 0.3 MG/DL (0.1-1.0); CALCIUM 9.4 MG/DL (8.5-10.1); CREATININE SERUM 0.75 MG/DL (0.60-1.30); POTASSIUM 3.8 MMOL/L (3.6-5.0)
== END | disposition home or self-care (01) ==
LOC: ONC 08-26 14:23
PROVIDERS: ATTEND Internal Medicine Hematology & Oncology
DX: Z51.11 Encounter for antineoplastic chemotherapy (principal); C54.1 Malignant neoplasm of endometrium; C79.62 Secondary malignant neoplasm of left ovary; C79.61 Secondary malignant neoplasm of right ovary; G89.3 Neoplasm related pain (acute) (chronic); Z87.891 Personal history of nicotine dependence; Z90.710 Acquired absence of both cervix and uterus; Z79.891 Long term (current) use of opiate analgesic; Z79.899 Other long term (current) drug therapy
CPT/HCPCS: 36591; 80048; 80053; 84443; 85025; 86304; 96367; 96375; 96413; 99213

== ENCOUNTER 2020-12-09 07:36 | Emergency (ER) | payer MEDICAID ==
[~2020-12-09] VITALS: Ht 175 cm; Wt 91.0 kg
[~2020-12-09 07:36] MED LIST changes: -D5W 500 ML IV (CANCER CTR) 500 ML IV SCH; -D5W IV SCH; -DOXORUBICIN LIPOSOMAL INJECT IV SCH; -FOSAPREPITANT (CANCER CENTER) 150 MG in NS (IVPB) CANCER CENTER ONLY 150 ML IV SCH; -NS IV 1000 ML (CANCER CTR) 1,000 ML IV SCH; -PEMBROLIZUMAB 200 MG in NS (IVPB) CANCER CENTER 50 ML IV SCH; -[UNRECOGNIZED DRUG - OTHER] IV SCH
[2020-12-09] MEDS ORDERED: NS IV 1000 ML 1,000 ML IV SCH (08:00)
[2020-12-09] MEDS ORDERED: ONDANSETRON 4 MG/2 ML (SDV) Z0FRAN IVP ONE (08:00)
[2020-12-09] MEDS ORDERED: HYDROmorphone 2 MG/ML VIAL (DILAUDID) IV ONE ×2 (08:00→09:30)
--- NOTE | 2020-12-09 08:05 | ED Chest Pain ---
General Stated Complaint: RUQ PAIN Source: patient Exam Limitations: no limitations History of Present Illness Date Seen by Provider: Dec 09, 2020 Time Seen by Provider: 07:50 Initial Comments Patient is a 40-year-old female who presents to the emergency department today with a chief complaint of right upper quadrant abdominal pain and right lower chest pain onset about midnight last night. Patient states that she took some oral morphine around 1 AM followed by a hydrocodone around 4 5 AM with no relief of symptoms. Patient states that she is a little bit nauseous but she attributes that to the hydrocodone. Patient states that she had similar pain that did not last quite as long about a month ago. She has a history of uterine cancer status post hysterectomy -total and "debulking" surgery about a year ago. She is under the care of Dr. Ugalde. She is on oral chemotherapy agents as well as immunotherapy. She states she is "stage IV". She states she had a rib and some mac & cheese last night for dinner. She still has her gallbladder. She was diagnosed back in July with appendicitis and treated with antibiotics as she states her surgeon it [facility] told her that she was a "poor surgical candidate" secondary to the debulking surgery last year. She denies fevers, chills. No vomiting. No recent diarrhea. No black or bloody stools. No issues with urination/hematuria/dysuria or frequency. Taking a deep breath really intensifies her pain as do certain movements. Nothing really makes it any better. She rates it at a "7" but worse when it hits her with a deep breath. She describes it as like "an arrow going through my chest" and points to the medial right breast in the low right chest wall. She denies any radiation of pain other than straight through to her back. All other review of systems reviewed and negative except as stated. Timing/Duration: 4-6 hours Severity/Quality: moderate, sharp Location: other (right medial low chest) Radiation: back Associated Symptoms: abdominal pain, nausea/vomiting (nausea without vomiting) Allergies and Home Medications Allergies Coded Allergies: amoxicillin (Unverified Allergy, Mild, HIVES, 05/30/08) aspirin (Unverified Allergy, Unknown, 01/13/14) Patient Home Medication List Home Medication List Reviewed: Yes Hydrocodone Bit/Acetaminophen (Lortab 7.5 Mg Tablet) 1 Ea Tablet, 1 TAB PO Q4H PRN for PAIN-MILD TO MODERATE, (Reported) Entered as Reported by: ALEKSANDRA ACOSTA on 03/17/17 1224 Hydrocodone/Acetaminophen (Hydrocodone-Acetamin 5-325 mg) 1 Each Tablet, 1 TAB PO Q4H PRN for PAIN-MODERATE (5-7) Prescribed by: SOLEDAD CHAMPION on 08/13/20 1554 Sulfamethoxazole/Trimethoprim (Sulfamethoxazole-Tmp Ds Tablet) 1 Each Tablet, 1 EACH PO BID, (Reported) Entered as Reported by: ALEKSANDRA ACOSTA on 03/17/17 1224 Review of Systems Review of Systems Constitutional: see HPI EENTM: No Symptoms Reported Respiratory: No Symptoms Reported Cardiovascular: Chest Pain Gastrointestinal: Abdominal Pain, Nausea Genitourinary: No Symptoms Reported Musculoskeletal: no symptoms reported Skin: no symptoms reported Psychiatric/Neurological: Depressed All Other Systems Reviewed Negative Unless Noted: Yes Past Hdafhtf-Wudtbm-Sjrpri Hx Immunizations Up To Date Tetanus Booster (TDap): Unknown Seasonal Allergies Seasonal Allergies: No Past Medical History Surgeries: Yes Adenoidectomy, Tonsillectomy Respiratory: Yes Asthma Cardiac: No Neurological: No Gastrointestinal: No Musculoskeletal: Yes Arthritis Endocrine: No Cancer: No Psychosocial: No Family Medical History Patient reports no known family medical history. Physical Exam Vital Signs Vital Signs - First Documented 12/09/20 07:54 Temp 36.4 Pulse 115 Resp 18 B/P (MAP) 135/71 (92) Pulse Ox 97 O2 Delivery Nasal Cannula Capillary Refill : Height, Weight, BMI Height: 5'9.00" Weight: 267lbs. 0.0oz. 121.753620iu; 39.00 BMI Method:Stated General Appearance: No Apparent Distress, WD/WN, Anxious HEENT: PERRL/EOMI Neck: Normal Inspection Respiratory: Lungs Clear, Normal Breath Sounds, No Accessory Muscle Use, No Respiratory Distress, Other (pleuritic pain with deep breath) Cardiovascular: Regular Rate, Rhythm Gastrointestinal: Soft, Abnormal Bowel Sounds (hypoactive), Tenderness (RUQ) Extremity: Normal Inspection Neurologic/Psychiatric: Alert, Oriented x3, No Motor/Sensory Deficits, Other (t earful) Skin: Normal Color, Warm/Dry, Other (no rashes) Progress/Results/Core Measures Results/Orders Lab Results Laboratory Tests Test 12/09/20 08:05 Range/Units White Blood Count 8.3 4.3-11.0 10^3/uL Red Blood Count 4.85 3.80-5.11 10^6/uL Hemoglobin 13.9 11.5-16.0 g/dL Hematocrit 42 35-52 % Mean Corpuscular Volume 86 80-99 fL Mean Corpuscular Hemoglobin 29 25-34 pg Mean Corpuscular Hemoglobin Concent 33 32-36 g/dL Red Cell Distribution Width 13.2 10.0-14.5 % Platelet Count 175 130-400 10^3/uL Mean Platelet Volume 8.9 L 9.0-12.2 fL Immature Granulocyte % (Auto) 1 % Neutrophils (%) (Auto) 73 42-75 % Lymphocytes (%) (Auto) 15 12-44 % Monocytes (%) (Auto) 9 0-12 % Eosinophils (%) (Auto) 2 0-10 % Basophils (%) (Auto) 0 0-10 % Neutrophils # (Auto) 6.0 1.8-7.8 10^3/uL Lymphocytes # (Auto) 1.2 1.0-4.0 10^3/uL Monocytes # (Auto) 0.8 0.0-1.0 10^3/uL Eosinophils # (Auto) 0.2 0.0-0.3 10^3/uL Basophils # (Auto) 0.0 0.0-0.1 10^3/uL Immature Granulocyte # (Auto) 0.0 0.0-0.1 10^3/uL Sodium Level 141 135-145 MMOL/L Potassium Level 4.0 3.6-5.0 MMOL/L Chloride Level 105 98-107 MMOL/L Carbon Dioxide Level 24 21-32 MMOL/L Anion Gap 12 5-14 MMOL/L Blood Urea Nitrogen 12 7-18 MG/DL Creatinine 0.83 0.60-1.30 MG/DL Estimat Glomerular Filtration Rate 75 BUN/Creatinine Ratio 14 Glucose Level 115 H 70-105 MG/DL Calcium Level 8.9 8.5-10.1 MG/DL Corrected Calcium 9.0 8.5-10.1 MG/DL Total Bilirubin 0.6 0.1-1.0 MG/DL Aspartate Amino Transf (AST/SGOT) 13 5-34 U/L Alanine Aminotransferase (ALT/SGPT) 9 0-55 U/L Alkaline Phosphatase 73 40-136 U/L Total Protein 7.0 6.4-8.2 GM/DL Albumin 3.9 3.2-4.5 GM/DL Lipase 37 8-78 U/L My Orders Orders - VELMA TOVAR MD Ed Iv/Invasive Line Start (12/09/20 08:00) Cbc With Automated Diff (12/09/20 08:00) Comprehensive Metabolic Panel (12/09/20 08:00) Lipase (12/09/20 08:00) Chest 1 View, Ap/Pa Only (12/09/20 08:00) Ns Iv 1000 Ml (Sodium Chloride 0.9%) (12/09/20 08:00) Hydromorphone Injection (Dilaudid Inject (12/09/20 08:00) Ondansetron Injection (Zofran Injectio (12/09/20 08:00) Ct Angio Chest W (12/09/20 08:50) Diphenhydramine Injection (Benadryl Inje (12/09/20 09:00) Iohexol Injection (Omnipaque 350 Mg/Ml 1 (12/09/20 09:00) Received Contrast (Hold Metformin- Contr (12/09/20 09:00) Ns (Ivpb) (Sodium Chloride 0.9% Ivpb Bag (12/09/20 09:00) Sodium Chloride Flush (Catheter Flush Sy (12/09/20 09:00) Morphine Injection (Morphine Injection (12/09/20 08:59) Hydromorphone Injection (Dilaudid Inject (12/09/20 09:30) Hydromorphone Injection (Dilaudid Inject (12/09/20 09:27) Us Gallbladder [id number] (12/09/20 09:40) Dicyclomine Injection (Bentyl Injection) (12/09/20 09:40) Medications Given in ED Current Medications Medications Dose Ordered Sig/Renny Route Start Time Stop Time Status Last Admin Dose Admin Diphenhydramine HCl 12.5 mg ONCE ONCE IV 12/09/20 09:00 12/09/20 09:01 DC 12/09/20 08:56 12.5 MG Hydromorphone HCl 0.5 mg ONCE ONCE IV 12/09/20 08:00 12/09/20 08:01 DC 12/09/20 08:11 0.5 MG Hydromorphone HCl 0.5 mg ONCE ONCE IV 12/09/20 09:30 12/09/20 09:31 DC 12/09/20 09:30 0.5 MG Iohexol 100 ml ONCE ONCE IV 12/09/20 09:00 12/09/20 09:01 DC 12/09/20 09:19 77 ML Ondansetron HCl 4 mg ONCE ONCE IVP 12/09/20 08:00 12/09/20 08:01 DC 12/09/20 08:14 4 MG Sodium Chloride 10 ml NEEDED PRN IV 12/09/20 09:00 12/09/20 10:48 DC 12/09/20 09:19 10 ML Sodium Chloride 100 ml ONCE ONCE IV 12/09/20 09:00 12/09/20 09:01 DC 12/09/20 09:19 80 ML Vital Signs/I&O 12/09/20 07:54 Temp 36.4 Pulse 115 Resp 18 B/P (MAP) 135/71 (92) Pulse Ox 97 O2 Delivery Nasal Cannula Progress Progress Note #1: Time: 08:50 Progress Note Pain is a little improved with the dilaudid. She states she can take a deeper breath, however the meds have made her itchy. Labs reviewed and WNL, chest xray looks good. Concerned for PE secondary to her elevated HR, pleuritic chest pain and history of cancer making her a little more hypercoagulable. Will do a CTA chest. She is scheduled for her liver MRI today too, at 0845, we are talking to MRI now about being able to get that done as well today. Progress Note #2: Time: 10:44 Progress Note Notified by the endoscopy technican of basically negative gallbladder ultrasound, no pericholecystic fluid is identified, no wall thickening or ductal dilatation is noted, no stones. Official radiology read is pending. Progress Note #3: Time: 11:24 Progress Note Care and case discussed with Dr. Ugalde. He advised that it is okay for the patient to double her dose of oral morphine. I did reschedule her MRI of the liver for tomorrow at 2:00. Communicated that the patient is to be n.p.o. after noon tomorrow and needs to be here at the hospital at 130 for the study. I advised her also to call his office for a follow-up appointment after the MRI. She verbalized understanding, continues to look improved at the time of discharge although she still has a mild degree of pain in the right upper quadrant. Vital signs, labs, imaging all reviewed with the patient. No clinical or objective findings to warrant further studies from the emergency department. I did not actually discover an etiology of her pain. Recommend supportive care at home and return precautions given. Patient verbalized understanding, all questions are sought and answered. Patient is stable for discharge. Diagnostic Imaging Diagonstic Imaging: CT Plain Films/CT/US/NM/MRI: chest Comments [facility] [place], [place] NAME: NAE XAVIER [facility] REC#: [id number] PT STATUS: REG ER : 1980 PHYSICIAN: VELMA TOVAR MD ADMIT DATE: 12/09/20/ER Draft Date of Exam:12/09/20 CT ANGIO CHEST W INDICATION: Right-sided chest pain, history of metastatic cancer. TECHNIQUE: Multiple contiguous axial images were obtained through the chest after uneventful bolus administration of intravenous contrast. 3D reconstructed CTA MIP acquisitions were also performed. Auto Exposure Controls were utilized during the CT exam to meet ALARA standards for radiation dose reduction. Comparison made to prior chest CT of 11/13/2020. The pulmonary parenchymal vessels are well-opacified with no CT evidence of pulmonary emboli. The thoracic aorta shows no evidence of aneurysm or dissection. Great vessel origins are patent and without stenosis. There are some minimal nodes in the mediastinum, none appear to be of pathologic size. There are minimal nodes in the mait as well which are not of pathologic size. There is no axillary adenopathy or chest wall lesion. There is no pleural or pericardial fluid. Lung parenchymal windows demonstrate tiny nodular density in the right lower lobe near the diaphragm, measuring about 5 mm. This was not present on the prior study. There are micronodular densities in the upper lobes which are new compared to the prior study and could be infectious or neoplastic. There is a right upper lobe nodule measuring about 5 mm, which was not seen previously. Visualized portions of the upper abdomen demonstrate some questionable edema around the gallbladder which was not seen on previous study. Consider further evaluation with gallbladder sonography. Low-density lesions in the right lobe the liver described on the prior study have not changed. IMPRESSION: No CT evidence of pulmonary emboli or aortic dissection or aneurysm. There are new tiny micronodular densities throughout the upper lobes, not seen on 11/13/2020. These may represent an infectious process or tiny metastases. There is a 5 mm nodule in the right upper lobe and a 5 mm nodule in the right lower lobe, which were not seen previously. There is some edema around the gallbladder, suggest gallbladder sonography. Low-density lesions in the right lobe of the liver described on the prior study have not changed. Dictated on workstation # [id number] Dict: 12/09/20920 Trans: 12/09/2034 [facility] [id number] Interpreted by: CHRISTOPHER COBB MD Electronically signed by: [employer] [place] NAME: NAE XAVIER [facility] REC#: [id number] PT STATUS: REG ER : 1980 PHYSICIAN: VELMA TOVAR MD ADMIT DATE: 12/09/20/ER Draft Date of Exam:12/09/20 CHEST 1 VIEW, AP/PA ONLY HISTORY: Right upper quadrant pain. Right lower chest pain. COMPARISON: 08/13/2020 TECHNIQUE: Frontal view of the chest. FINDINGS: The left Port-A-Cath is in stable position at the SVC. Lung volumes are normal. No consolidation is seen. There is no pleural effusion or pneumothorax. The cardiac silhouette is normal in size. IMPRESSION: 1. No acute pulmonary abnormality. Dictated on workstation # [id number] Dict: 12/09/2042 Trans: 12/09/20 0845 [id number] Interpreted by: MIRNA TELLEZ MD Electronically signed by: [employer] [facility] [place] NAME[facility] REC#: [id number] PT STATUS: DEP ER : 1980 PHYSICIAN: VELMA TOVAR MD ADMIT DATE: 12/09/20/ER Draft Date of Exam:12/09/20 US GALLBLADDER [id number] PROCEDURE: US Gallbladder. TECHNIQUE: Multiple real-time grayscale images were obtained over the right upper quadrant in various projections. INDICATION: Right upper quadrant pain. History of uterine cancer. FINDINGS: The liver is mildly echogenic and enlarged consistent with fatty infiltration. The low-density nodules inferiorly in the right lobe of the liver noted on CT scan are again identified. The largest measuring 2.3 cm. These are hypodense though do not represent simple cyst. The bile ducts are not dilated. Common duct measures 5 mm. The gallbladder appears normal without evidence of gallstones or wall thickening. Pancreas is obscured by bowel gas. The aorta and vena cava appear normal. Right kidney measures 12.3 x 5.9 cm. No hydronephrosis or calculi. There is no ascites. Negative Yanes's sign. IMPRESSION: 1. Hypoechoic noncystic nodules in the inferior portion of the right lobe of the liver, correlate with findings on CT scan. Metastatic lesions would be in the differential. There is mild hepatomegaly with fatty change. 2. Gallbladder and bile ducts appear normal. Dictated on workstation # [id number] Dict: 12/09/20 1115 Trans: 12/09/20 1121 [id number] [id number] Interpreted by: BARBARA VELAZCO MD Electronically signed by: Departure Impression Primary Impression: Pleuritic chest pain Disposition: 01 HOME, SELF-CARE Condition: Stable Departure-Patient Inst. Decision time for Depature: 11:26 Referrals: [facility]/ (PCP) Primary Care Physician VERENA MOLINA (Family) Primary Care Physician HUMBERTO SHEARER Patient Instructions: Pleuritic Chest Pain Add. Discharge Instructions: Please drink plenty of fluids to stay well-hydrated. You may double your dose of oral morphine, with same directions on the bottle. I have rescheduled your MRI of the liver tomorrow for 2 PM. You will need to be at the hospital at 1:30 PM. Nothing to eat or drink after noon tomorrow. Please call Dr. Jara office today for a follow-up appointment to be scheduled after your MRI of the liver. Come back to the emergency department if you develop a fever, have worsening shortness of breath, vomiting, or any other emergent concerning symptoms. Copy Copies To 1: DIPTI WHITTEN DO Copies To 2: HUMBERTO SHEARER KATHRYN M MD Dec 09, 2020 08:05
[2020-12-09 08:13] LABS: BASOPHILS % (AUTO) 0 % (0-10); EOSINOPHILS # (AUTO) 0.2 10^3/uL (0.0-0.3); EOSINOPHILS % (AUTO) 2 % (0-10); HEMATOCRIT 42 % (35-52); HEMOGLOBIN 13.9 g/dL (11.5-16.0); LYMPHOCYTES # (AUTO) 1.2 10^3/uL (1.0-4.0); LYMPHOCYTES % (AUTO) 15 % (12-44); MEAN CORPUSCULAR HEMOGLOBIN 29 pg (25-34); MEAN CORPUSCULAR HGB CONC 33 g/dL (32-36); MEAN CORPUSCULAR VOLUME 86 fL (80-99); MEAN PLATELET VOLUME 8.9 fL (9.0-12.2); MONOCYTES # (AUTO) 0.8 10^3/uL (0.0-1.0); MONOCYTES % (AUTO) 9 % (0-12); NEUTROPHILS % (AUTO) 73 % (42-75); PLATELET COUNT 175 10^3/uL (130-400); WHITE BLOOD COUNT 8.3 10^3/uL (4.3-11.0)
[2020-12-09 08:30] LABS: ALBUMIN 3.9 GM/DL (3.2-4.5); BILIRUBIN,TOTAL 0.6 MG/DL (0.1-1.0); CALCIUM 8.9 MG/DL (8.5-10.1); CREATININE SERUM 0.83 MG/DL (0.60-1.30)
--- NOTE | 2020-12-09 08:45 | Diagnostic Imaging Report ---
HISTORY: Right upper quadrant pain. Right lower chest pain. COMPARISON: 08/13/2020 TECHNIQUE: Frontal view of the chest. FINDINGS: The left Port-A-Cath is in stable position at the SVC. Lung volumes are normal. No consolidation is seen. There is no pleural effusion or pneumothorax. The cardiac silhouette is normal in size. IMPRESSION: 1. No acute pulmonary abnormality. Dictated by: Dictated on workstation # [id number]
[2020-12-09] MEDS ORDERED: morphine INJ 10 MG/ML 1ML (SYR OR VIAL) IVP STA (08:59)
[2020-12-09] MEDS ORDERED: IOHEXOL 350 MG/ML 100 ML (OMNIPAQUE 350) VIAL IV ONE (09:00)
[2020-12-09] MEDS ORDERED: HOLD METFORMIN - RECEIVED CONTRAST 20 ML VIAL IV SCH (09:00)
[2020-12-09] MEDS ORDERED: NS 100 ML (IVPB) BAG IV ONE (09:00)
[2020-12-09] MEDS ORDERED: CATHETER FLUSH 10 ML SYR IV PRN (09:00)
[2020-12-09] MEDS ORDERED: diphenhydrAMINE 50 MG/ML INJ (BENADRYL) IV ONE (09:00)
[2020-12-09] MEDS ORDERED: HYDROmorphone 2 MG/ML VIAL (DILAUDID) ONE (09:27)
--- NOTE | 2020-12-09 09:34 | Diagnostic Imaging Report ---
INDICATION: Right-sided chest pain, history of metastatic cancer. TECHNIQUE: Multiple contiguous axial images were obtained through the chest after uneventful bolus administration of intravenous contrast. 3D reconstructed CTA MIP acquisitions were also performed. Auto Exposure Controls were utilized during the CT exam to meet ALARA standards for radiation dose reduction. Comparison made to prior chest CT of 11/13/2020. The pulmonary parenchymal vessels are well-opacified with no CT evidence of pulmonary emboli. The thoracic aorta shows no evidence of aneurysm or dissection. Great vessel origins are patent and without stenosis. There are some minimal nodes in the mediastinum, none appear to be of pathologic size. There are minimal nodes in the mati as well which are not of pathologic size. There is no axillary adenopathy or chest wall lesion. There is no pleural or pericardial fluid. Lung parenchymal windows demonstrate tiny nodular density in the right lower lobe near the diaphragm, measuring about 5 mm. This was not present on the prior study. There are micronodular densities in the upper lobes which are new compared to the prior study and could be infectious or neoplastic. There is a right upper lobe nodule measuring about 5 mm, which was not seen previously. Visualized portions of the upper abdomen demonstrate some questionable edema around the gallbladder which was not seen on previous study. Consider further evaluation with gallbladder sonography. Low-density lesions in the right lobe the liver described on the prior study have not changed. IMPRESSION: No CT evidence of pulmonary emboli or aortic dissection or aneurysm. There are new tiny micronodular densities throughout the upper lobes, not seen on 11/13/2020. These may represent an infectious process or tiny metastases. There is a 5 mm nodule in the right upper lobe and a 5 mm nodule in the right lower lobe, which were not seen previously. There is some edema around the gallbladder, suggest gallbladder sonography. Low-density lesions in the right lobe of the liver described on the prior study have not changed. Dictated by: Dictated on workstation # [id number]
[2020-12-09] MEDS ORDERED: DICYCLOMINE 10 MG/ML (BENTYL) 2 ML AMP IM STA (09:40)
[2020-12-09 10:47] VITALS: BP 135/71
--- NOTE | 2020-12-09 11:22 | Diagnostic Imaging Report ---
PROCEDURE: US Gallbladder. TECHNIQUE: Multiple real-time grayscale images were obtained over the right upper quadrant in various projections. INDICATION: Right upper quadrant pain. History of uterine cancer. FINDINGS: The liver is mildly echogenic and enlarged consistent with fatty infiltration. The low-density nodules inferiorly in the right lobe of the liver noted on CT scan are again identified. The largest measuring 2.3 cm. These are hypodense though do not represent simple cyst. The bile ducts are not dilated. Common duct measures 5 mm. The gallbladder appears normal without evidence of gallstones or wall thickening. Pancreas is obscured by bowel gas. The aorta and vena cava appear normal. Right kidney measures 12.3 x 5.9 cm. No hydronephrosis or calculi. There is no ascites. Negative Yanes's sign. IMPRESSION: 1. Hypoechoic noncystic nodules in the inferior portion of the right lobe of the liver, correlate with findings on CT scan. Metastatic lesions would be in the differential. There is mild hepatomegaly with fatty change. 2. Gallbladder and bile ducts appear normal. Dictated by: Dictated on workstation # [id number]
== END 2020-12-09 10:47 | disposition other institution (70) ==
LOC: EDUNIT# 07:36 → ER 07:37
DX: C55 Malignant neoplasm of uterus, part unspecified (principal); R07.81 Pleurodynia; J45.909 Unspecified asthma, uncomplicated
CPT/HCPCS: 36415; 71045; 71275; 76705; 80053; 83690; 85025

== ENCOUNTER → 2020-12-10 | Outpatient (CLI) | payer MEDICAID ==
[~2020-12-10] MED LIST changes: +GADOTERATE 0.5 MMOL/ML (CLARISCAN) 15 ML VIAL IV ONE; +GADOTERATE 0.5 MMOL/ML (CLARISCAN) 20 ML VIAL IV ONE
--- NOTE | 2020-12-10 17:41 | Diagnostic Imaging Report ---
EXAMINATION: MRI of the abdomen with and without contrast. TECHNIQUE: Multiplanar, multisequence MR images of the abdomen were obtained with and without intravenous contrast. HISTORY: Abnormal CT of the liver. Uterine cancer. COMPARISON: CT dated 11/13/2020. FINDINGS: The liver is normal size. There is no hepatic steatosis. The segment 6 liver lesions are T2 intermediate and T1 hypointense with peripheral ring enhancement. There are approximately four lesions in segment 6. The largest measures 17 x 14 mm. Another lesion measures 16 x 14 mm. There is also a segment 8 liver lesion that measures 13 mm. No surface nodularity. The gallbladder is normal. There is no biliary ductal dilation. Pancreas is normal. The pancreatic duct is normal. Spleen is normal. Adrenal glands are normal. The kidneys are normal. There is no hydronephrosis. Visualized bowel is normal. No lymphadenopathy is seen. Lung bases are clear. No osseus lesions are seen. IMPRESSION: The liver lesions in segment 6 as well as a lesion in segment 8 are T2 intermediate with peripheral ring enhancement and are most consistent with metastatic disease. Dictated by: Dictated on workstation # [id number]
== END ==
LOC: RAD 14:00
PROVIDERS: ATTEND Nurse Practitioner Adult Health
DX: K76.89 Other specified diseases of liver (principal); C55 Malignant neoplasm of uterus, part unspecified
CPT/HCPCS: 74183

== ENCOUNTER → 2021-01-21 | Outpatient (CLI) | payer MEDICAID ==
[~2021-01-21] MED LIST changes: -GADOTERATE 0.5 MMOL/ML (CLARISCAN) 15 ML VIAL IV ONE; +GADOTERATE 0.5 MMOL/ML (CLARISCAN) 5 ML VIAL IV ONE
--- NOTE | 2021-01-21 12:09 | Diagnostic Imaging Report ---
CLINICAL INDICATION: Patient with history of uterine cancer. Patient is having dizziness. EXAM: MRI of the brain performed without and with 24 cc of Clariscan IV contrast. Sequences include axial DWI, ADC map, axial gradient echo, axial FLAIR, axial T1, axial T2, axial T1 post IV contrast whole brain, coronal T1 fat-sat post IV contrast whole brain, and sagittal T1 fat-sat post IV contrast whole brain. COMPARISON: Head CT without contrast dated 08/13/2020. FINDINGS: There is no evidence of acute cerebral infarct, intracranial hemorrhage, or gross mass effect. The brain parenchymal volume appears appropriate for patient's age. There are two focal areas of high T2 signal in the subcortical lateral right frontal lobe region measuring up to 4 mm and closely adjacent to each other. There is no associated IV contrast enhancement. The remainder of the brain parenchyma is unremarkable. There is normal woo-white matter distinction. There is no significant midline shift or herniation. The [place] vascular structures show no gross abnormality as visualized. The pituitary gland, sella, and suprasellar regions are unremarkable as visualized. There is no evidence of hydrocephalus. The basal cisterns are unremarkable. The skull, extracranial soft tissue, and orbits are unremarkable. There is mild ethmoid sinus mucosal thickening. There is a [id number] amount of fluid in the left mastoid air cells and minimal fluid in the right mastoid air cells. IMPRESSION: 1: There is no evidence of acute intracranial process. There is no evidence of metastatic disease or abnormal enhancement. 2: There are two closely adjacent focal areas of high T2 signal involving the subcortical lateral right frontal lobe region, which are nonspecific. These may be inconsequential. 3: There is mild paranasal sinus disease. There is fluid in both mastoid air cells. Dictated by: Dictated on workstation # [id number]
== END ==
LOC: RAD 11:00
PROVIDERS: ATTEND Nurse Practitioner Adult Health
DX: J32.9 Chronic sinusitis, unspecified (principal); H53.9 Unspecified visual disturbance; Z85.42 Personal history of malignant neoplasm of other parts of uterus
CPT/HCPCS: 70553

== ENCOUNTER 2021-01-26 14:08 | Outpatient (RCR) | payer MEDICAID ==
[2020-12-15 13:58] LABS: BASOPHILS % (AUTO) 0 % (0-10); EOSINOPHILS # (AUTO) 0.1 10^3/uL (0.0-0.3); EOSINOPHILS % (AUTO) 2 % (0-10); HEMATOCRIT 37 % (35-52); HEMOGLOBIN 12.4 g/dL (11.5-16.0); LYMPHOCYTES # (AUTO) 0.9 10^3/uL (1.0-4.0); LYMPHOCYTES % (AUTO) 13 % (12-44); MEAN CORPUSCULAR HEMOGLOBIN 29 pg (25-34); MEAN CORPUSCULAR HGB CONC 33 g/dL (32-36); MEAN CORPUSCULAR VOLUME 86 fL (80-99); MEAN PLATELET VOLUME 9.3 fL (9.0-12.2); MONOCYTES # (AUTO) 0.4 10^3/uL (0.0-1.0); MONOCYTES % (AUTO) 7 % (0-12); NEUTROPHILS # (AUTO) 5.1 10^3/uL (1.8-7.8); NEUTROPHILS % (AUTO) 78 % (42-75); PLATELET COUNT 190 10^3/uL (130-400); WHITE BLOOD COUNT 6.6 10^3/uL (4.3-11.0)
[2020-12-15 14:35] LABS: ALBUMIN 3.6 GM/DL (3.2-4.5); BILIRUBIN,TOTAL 0.4 MG/DL (0.1-1.0); CREATININE SERUM 0.76 MG/DL (0.60-1.30); POTASSIUM 3.8 MMOL/L (3.6-5.0); TOTAL PROTEIN 6.7 GM/DL (6.4-8.2)
[2021-01-05 14:16] LABS: BASOPHILS % (AUTO) 1 % (0-10); EOSINOPHILS # (AUTO) 0.2 10^3/uL (0.0-0.3); EOSINOPHILS % (AUTO) 3 % (0-10); HEMATOCRIT 40 % (35-52); HEMOGLOBIN 13.1 g/dL (11.5-16.0); LYMPHOCYTES % (AUTO) 16 % (12-44); MEAN CORPUSCULAR HEMOGLOBIN 28 pg (25-34); MEAN CORPUSCULAR HGB CONC 33 g/dL (32-36); MEAN CORPUSCULAR VOLUME 86 fL (80-99); MEAN PLATELET VOLUME 9.4 fL (9.0-12.2); MONOCYTES # (AUTO) 0.6 10^3/uL (0.0-1.0); MONOCYTES % (AUTO) 10 % (0-12); NEUTROPHILS # (AUTO) 4.6 10^3/uL (1.8-7.8); NEUTROPHILS % (AUTO) 71 % (42-75); PLATELET COUNT 213 10^3/uL (130-400); WHITE BLOOD COUNT 6.4 10^3/uL (4.3-11.0)
[2021-01-05 14:47] LABS: ALBUMIN 3.7 GM/DL (3.2-4.5); BILIRUBIN,TOTAL 0.4 MG/DL (0.1-1.0); CREATININE SERUM 0.81 MG/DL (0.60-1.30); TOTAL PROTEIN 6.6 GM/DL (6.4-8.2)
[~2021-01-26 14:08] MED LIST changes: -GADOTERATE 0.5 MMOL/ML (CLARISCAN) 20 ML VIAL IV ONE; -GADOTERATE 0.5 MMOL/ML (CLARISCAN) 5 ML VIAL IV ONE; +NS IV 1000 ML (CANCER CTR) 1,000 ML IV SCH; +PEMBROLIZUMAB 200 MG in NS (IVPB) CANCER CENTER 50 ML IV SCH
[2021-01-26 14:39] LABS: BASOPHILS % (AUTO) 0 % (0-10); EOSINOPHILS # (AUTO) 0.1 10^3/uL (0.0-0.3); EOSINOPHILS % (AUTO) 2 % (0-10); HEMATOCRIT 43 % (35-52); LYMPHOCYTES # (AUTO) 1.1 10^3/uL (1.0-4.0); LYMPHOCYTES % (AUTO) 15 % (12-44); MEAN CORPUSCULAR HEMOGLOBIN 28 pg (25-34); MEAN CORPUSCULAR HGB CONC 32 g/dL (32-36); MEAN CORPUSCULAR VOLUME 86 fL (80-99); MEAN PLATELET VOLUME 9.4 fL (9.0-12.2); MONOCYTES # (AUTO) 0.6 10^3/uL (0.0-1.0); MONOCYTES % (AUTO) 8 % (0-12); NEUTROPHILS # (AUTO) 5.5 10^3/uL (1.8-7.8); NEUTROPHILS % (AUTO) 74 % (42-75); PLATELET COUNT 179 10^3/uL (130-400); WHITE BLOOD COUNT 7.4 10^3/uL (4.3-11.0)
[2021-01-26] MEDS ORDERED: fentaNYL INJ 100 MCG/2 ML (CANCER CENTER) ONE (15:03)
[2021-01-26 15:04] LABS: ALBUMIN 3.6 GM/DL (3.2-4.5); BILIRUBIN,TOTAL 0.4 MG/DL (0.1-1.0); CALCIUM 8.6 MG/DL (8.5-10.1); CREATININE SERUM 0.76 MG/DL (0.60-1.30); POTASSIUM 4.5 MMOL/L (3.6-5.0)
== END 2021-02-06 | disposition home or self-care (01) ==
LOC: ONC 14:08
PROVIDERS: ATTEND Internal Medicine Hematology & Oncology
DX: Z51.11 Encounter for antineoplastic chemotherapy (principal); Z45.2 Encounter for adjustment and management of vascular access device; C54.1 Malignant neoplasm of endometrium; C79.62 Secondary malignant neoplasm of left ovary; C79.61 Secondary malignant neoplasm of right ovary; Z87.891 Personal history of nicotine dependence; Z90.710 Acquired absence of both cervix and uterus; Z79.891 Long term (current) use of opiate analgesic; Z79.899 Other long term (current) drug therapy
CPT/HCPCS: 80053; 84443; 85025; 86304; 96413; G0463; 36591; 96374; 99213

== ENCOUNTER → 2021-02-03 | Outpatient (CLI) | payer MEDICAID ==
[~2021-02-03] MED LIST changes: +CATHETER FLUSH 10 ML SYR IV PRN; +HOLD METFORMIN - RECEIVED CONTRAST 20 ML VIAL IV SCH; +IOHEXOL 350 MG/ML 100 ML (OMNIPAQUE 350) VIAL IV ONE; +NS 100 ML (IVPB) BAG IV ONE; -NS IV 1000 ML (CANCER CTR) 1,000 ML IV SCH; -PEMBROLIZUMAB 200 MG in NS (IVPB) CANCER CENTER 50 ML IV SCH
--- NOTE | 2021-02-03 18:10 | Diagnostic Imaging Report ---
INDICATION: Carcinosarcoma of the uterus. TECHNIQUE: Patient was administered 25.4 mCi of technetium-99m MDP intravenously, and whole body imaging was performed after a three-hour delay. COMPARISON: No prior bone scans are available for comparison. FINDINGS: There is normal uptake of activity by the axial and appendicular skeleton. There is uptake by the kidneys with excretion into the urinary bladder. No suspicious foci are identified to suggest osseous metastatic disease. IMPRESSION: No scintigraphic evidence of osseous metastatic disease. Dictated by: Dictated on workstation # [id number]
--- NOTE | 2021-02-03 19:00 | Diagnostic Imaging Report ---
EXAMINATION: CT chest with intravenous contrast, CT abdomen and pelvis without and with intravenous contrast. TECHNIQUE: Pre and post intravenous contrast axial imaging of the abdomen and pelvis and post contrast axial imaging of the chest were performed. All CT scans use one or more of the following dose optimizing techniques: automated exposure control, MA and/or KvP adjustment based on patient size and exam type or iterative reconstruction. HISTORY: Uterine cancer. COMPARISON: CT chest, abdomen, and pelvis 11/13/2020, CTA chest 12/09/2020, MRI abdomen 12/10/2020. FINDINGS: Thyroid: The thyroid is normal. Mediastinum: Heart size is normal without significant pericardial effusion. The aorta is normal in caliber. Stable prominent mediastinal lymph nodes which are not pathologically enlarged. There are prominent perihilar lymph nodes. Lungs and airways: There are diffuse nodular and ground-glass opacities seen throughout both lungs. These have progressed from 12/09/2020. Stable 0.5 cm right upper lobe pulmonary nodule. Stable 0.5 cm right lower lobe pulmonary nodule. No pleural effusion or pneumothorax. The airways are patent. Solid organs: Stable 0.9 cm hypoattenuating lesion within hepatic segment VII (series 3, image 74). Hypoattenuating lesions within hepatic segment measure up to 3.0 cm and have increased in size from 11/13/2020. Overall stable in appearance compared to recent MRI of 12/10/2020 given differences in technique. There is no new suspicious hepatic lesion. The gallbladder is normal. There is no biliary ductal dilation. Pancreas is normal. Spleen is normal. Adrenal glands are normal. The kidneys are normal without hydronephrosis. Bowel: The stomach and small bowel are normal without obstruction. The colon and appendix are normal. Peritoneum: There is no intraperitoneal free fluid or free air. No suspicious lymphadenopathy. Vasculature: Calcification of the aorta without aneurysm. Musculoskeletal: Degenerative changes of the spine without suspicious osseous lesion or compression fracture. Pelvis: The uterus is surgically absent. No adnexal mass. No suspicious lesion within the hysterectomy bed. The urinary bladder is normal. IMPRESSION: 1. Increasing diffuse miliary pattern ground-glass opacities and nodules throughout the lungs. These findings could be seen with an infectious process, but metastatic disease would be of concern. 2. Multiple hepatic metastases, the largest of which has increased in size from 11/13/2020 but is similar in size to recent MRI of 12/10/2020. 3. No new findings of metastatic disease within the abdomen or pelvis. Dictated by: Dictated on workstation # [id number]
== END ==
LOC: CARD 12:00
PROVIDERS: ATTEND Nurse Practitioner Adult Health
DX: Z51.11 Encounter for antineoplastic chemotherapy (principal); C80.1 Malignant (primary) neoplasm, unspecified; C78.6 Secondary malignant neoplasm of retroperitoneum and peritoneum; C78.7 Secondary malignant neoplasm of liver and intrahepatic bile duct; R91.8 Other nonspecific abnormal finding of lung field
CPT/HCPCS: 71260; 74178; 78306; A9503

== ENCOUNTER 2021-02-16 14:31 | Outpatient (RCR) | payer MEDICAID ==
[~2021-02-16 14:31] MED LIST changes: -CATHETER FLUSH 10 ML SYR IV PRN; -HOLD METFORMIN - RECEIVED CONTRAST 20 ML VIAL IV SCH; -IOHEXOL 350 MG/ML 100 ML (OMNIPAQUE 350) VIAL IV ONE; -NS 100 ML (IVPB) BAG IV ONE; +NS IV 1000 ML (CANCER CTR) 1,000 ML IV SCH; +PEMBROLIZUMAB 200 MG in NS (IVPB) CANCER CENTER 50 ML IV SCH
[2021-02-16 14:48] LABS: BASOPHILS % (AUTO) 0 % (0-10); EOSINOPHILS # (AUTO) 0.1 10^3/uL (0.0-0.3); EOSINOPHILS % (AUTO) 1 % (0-10); HEMATOCRIT 46 % (35-52); HEMOGLOBIN 15.3 g/dL (11.5-16.0); LYMPHOCYTES % (AUTO) 13 % (12-44); MEAN CORPUSCULAR HEMOGLOBIN 28 pg (25-34); MEAN CORPUSCULAR HGB CONC 33 g/dL (32-36); MEAN CORPUSCULAR VOLUME 83 fL (80-99); MEAN PLATELET VOLUME 9.7 fL (9.0-12.2); MONOCYTES # (AUTO) 0.6 10^3/uL (0.0-1.0); MONOCYTES % (AUTO) 7 % (0-12); NEUTROPHILS # (AUTO) 6.3 10^3/uL (1.8-7.8); NEUTROPHILS % (AUTO) 78 % (42-75); PLATELET COUNT 195 10^3/uL (130-400)
[2021-02-16 15:32] LABS: ALBUMIN 3.8 GM/DL (3.2-4.5); BILIRUBIN,TOTAL 0.4 MG/DL (0.1-1.0); CALCIUM 9.5 MG/DL (8.5-10.1); CREATININE SERUM 0.81 MG/DL (0.60-1.30); TOTAL PROTEIN 7.1 GM/DL (6.4-8.2)
== END 2021-03-09 | disposition home or self-care (01) ==
LOC: ONC 14:31
PROVIDERS: ATTEND Internal Medicine Hematology & Oncology
DX: Z51.11 Encounter for antineoplastic chemotherapy (principal); Z45.2 Encounter for adjustment and management of vascular access device; C54.1 Malignant neoplasm of endometrium; C79.62 Secondary malignant neoplasm of left ovary; C79.61 Secondary malignant neoplasm of right ovary; Z87.891 Personal history of nicotine dependence; Z90.710 Acquired absence of both cervix and uterus; Z79.899 Other long term (current) drug therapy
CPT/HCPCS: 80053; 84443; 85025; 86304; 96413; G0463

== ENCOUNTER → 2021-03-30 | Outpatient (CLI) | payer MEDICAID ==
[~2021-03-30] MED LIST changes: -NS IV 1000 ML (CANCER CTR) 1,000 ML IV SCH; -PEMBROLIZUMAB 200 MG in NS (IVPB) CANCER CENTER 50 ML IV SCH
--- NOTE | 2021-03-30 11:35 | Diagnostic Imaging Report ---
PROCEDURE: US left lower extremity venous. TECHNIQUE: Multiple real-time grayscale images were obtained over the left lower extremity in various projections. Additional duplex Doppler and color Doppler images were also obtained. INDICATION: Left lower extremity pain. EXAMINATION: Grayscale and color Doppler evaluation of the deep veins of the left lower extremity were performed with waveform analysis. FINDINGS: Continuous venous flow is present. No intraluminal filling defect is identified. There is normal compressibility and response to augmentation. No abnormal perivascular fluid collection is identified. IMPRESSION: No ultrasound evidence of left lower extremity deep venous thrombosis. Dictated by: Dictated on workstation # [id number]
--- NOTE | 2021-03-30 12:17 | Diagnostic Imaging Report ---
INDICATION: Pain COMPARISON: CT dated 11/13/2020 TECHNIQUE: 2 radiographs of the left hip dated 03/30/2021. FINDINGS: Moderate degenerative changes within the partially visualized lower lumbar spine with associated osteophyte formation. The sacroiliac joint on the left and pubic symphysis are intact with associated mild degenerative changes. No acute fracture or dislocation. No destructive osseous process. Moderate left hip joint space narrowing is noted with associated moderate osteophytosis. No collapse of the left femoral head. Minimal enthesophyte formation associated with the lesser trochanter. No suspicious radiopaque foreign body. IMPRESSION: No acute osseous abnormality with moderate degenerative changes present. Should there remain a high clinical concern for underlying occult fracture, further evaluation with CT or MRI could be considered. Report given to Dr. Edmondson at 12:16 PM 03/30/2021/malinda Dictated by: Dictated on workstation # [id number]
== END ==
LOC: RAD 11:00
PROVIDERS: ATTEND Internal Medicine Hematology & Oncology
DX: M16.12 Unilateral primary osteoarthritis, left hip (principal); C55 Malignant neoplasm of uterus, part unspecified; C78.7 Secondary malignant neoplasm of liver and intrahepatic bile duct
CPT/HCPCS: 73502

== ENCOUNTER 2021-10-19 14:26 | Emergency (ER) | payer MEDICAID ==
[~2021-10-19] VITALS: Ht 175.3 cm; Wt 128.4 kg
--- NOTE | 2021-10-19 15:12 | ED Back Pain ---
General Chief Complaint: Back Problems Stated Complaint: BACK PAIN Nursing Triage Note: PT AMB TO ED BY POV WITH C/O LOWER BACK PAIN SINCE TUE NIGHT. PT REPORTS SHE FINISHED ANTIBIOTICS FOR UTI LAST TUESDAY. PT HAS STAGE 4 UTERINE CA AND NORMALLY HAS DIFFICULTY URINATING, DENIES BURNING OR PAIN WITH URINATION AT THIS TIME. PAIN IS WORSE WHEN AMB AND BREATHING. DENIES FEVER. PT TOOK HERSELF OFF HOSPICE ON TUE AND WILL BE SEEKING ADDITIONAL TX FOR CA. Source of Information: Patient, Old Records Exam Limitations: No Limitations History of Present Illness Date Seen by Provider: Oct 19, 2021 Time Seen by Provider: 15:12 Initial Comments This is a 41 yo female with history of metastatic uterine cancer who presented to the ER with c/ pain in her right flank. Allergies and Home Medications Allergies Coded Allergies: amoxicillin (Unverified Allergy, Mild, HIVES, 05/30/08) aspirin (Unverified Allergy, Unknown, 01/13/14) Patient Home Medication List Home Medication List Reviewed: Yes Hydrocodone Bit/Acetaminophen (Lortab 7.5 Mg Tablet) 1 Ea Tablet, 1 TAB PO Q4H PRN for PAIN-MILD TO MODERATE, (Reported) Entered as Reported by: ALEKSANDRA ACOSTA on 03/17/17 1224 Hydrocodone/Acetaminophen (Hydrocodone-Acetamin 5-325 mg) 1 Each Tablet, 1 TAB PO Q4H PRN for PAIN-MODERATE (5-7) Prescribed by: SOLEDAD CHAMPION on 08/13/20 1554 Morphine Sulfate (Morphine Conc. 20mg/ml) 100 Mg/5 Ml (20 Mg/Ml) Solution, 10 MG PO Q4H PRN for PAIN Prescribed by: SOLEDAD CHAMPION on 10/19/21 1656 Last Action: New Order Sulfamethoxazole/Trimethoprim (Sulfamethoxazole-Tmp Ds Tablet) 1 Each Tablet, 1 EACH PO BID, (Reported) Entered as Reported by: ALEKSANDRA ACOSTA on 03/17/17 1224 Past Jntqdzw-Gtrlsp-Kccase Hx Patient Social History Tobacco Use?: No Use of E-Cig and/or Vaping dev: No Substance use?: No Alcohol Use?: No Pt feels they are or have been: No Immunizations Up To Date Tetanus Booster (TDap): Unknown Influenza Vaccine Up-to-Date: No; Not Current Seasonal Allergies Seasonal Allergies: No Past Medical History Surgery/Hospitalization HX: STAGE 4 UTERINE CA HYSTERECTOMY Surgeries: Yes Adenoidectomy, Tonsillectomy Respiratory: Yes Asthma Cardiac: No Neurological: No Gastrointestinal: No Musculoskeletal: Yes Arthritis Endocrine: No Cancer: No Psychosocial: No Family Medical History Patient reports no known family medical history. Physical Exam Vital Signs Vital Signs - First Documented 10/19/21 14:32 Temp 36.6 Pulse 106 Resp 20 B/P (MAP) 114/72 (86) Pulse Ox 98 O2 Delivery Room Air Capillary Refill : Less Than 3 Seconds Height, Weight, BMI Height: 5'9.00" Weight: 267lbs. 0.0oz. 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 Decision time for Depature: 16:37 Referrals: [facility] – [place] (PCP/Family) Primary Care Physician JAQUAN POPE MD Patient Instructions: Chronic Pain Add. Discharge Instructions: Plan: 1. Follow up with Dr. Coy for additional pain medication. 2. Follow up with Dr. Pope regarding arterial insufficiency of your left foot. 3. Return to ER for any new, concerning, or worsening symptoms. All discharge instructions reviewed with patient and/or family. Voiced understanding. Scripts Morphine Sulfate (Morphine Conc. 20mg/ml) 100 Mg/5 Ml (20 Mg/Ml) Solution 10 MG PO Q4H PRN for PAIN for 4 Days, #10 ML 0 Refills Prov: JAYCEESOLEDAD PONCE APRN 10/19/21 SOLEDAD CHAMPION APRN Oct 19, 2021 15:12
[2021-10-19] MEDS ORDERED: HYDROmorphone 2 MG/ML VIAL (DILAUDID) IV ONE (15:15)
[2021-10-19] MEDS ORDERED: HYDROmorphone 2 MG/ML VIAL (DILAUDID) IM ONE ×2 (15:45→17:00)
--- NOTE | 2021-10-19 16:26 | Diagnostic Imaging Report ---
TECHNIQUE: Live grayscale and color Doppler ultrasound was performed of the left lower extremity arterial system. REASON FOR EXAM: Decreased pedal pulses. COMPARISON: None. FINDINGS: Triphasic waveforms are visualized in the common femoral, profunda femoris, superficial femoral, popliteal, and posterior tibial arteries. Biphasic waveforms are seen in the anterior tibial artery. Monophasic waveforms with diminished flow velocities are seen in the left dorsalis pedis artery. No elevated flow velocities are seen in the left lower extremity arterial system. IMPRESSION: 1. Monophasic waveforms with diminished peak systolic velocity in the left dorsalis pedis artery. 2. No focal visualized stenosis or elevated flow velocities are seen in the left lower extremity arterial system. Dictated by: Dictated on workstation # [id number]
[2021-10-19] MEDS ORDERED: MORP100S7 PO (16:55)
[2021-10-19 17:07] VITALS: BP 140/86
== END 2021-10-19 17:09 | disposition home or self-care (01) ==
LOC: EDUNIT# 14:26 → ER 14:28
DX: G89.29 Other chronic pain (principal); M54.50 Low back pain, unspecified; I73.9 Peripheral vascular disease, unspecified; Z87.440 Personal history of urinary (tract) infections; Z28.310 Unvaccinated for COVID-19
CPT/HCPCS: 93926

== ENCOUNTER → 2021-10-23 | Outpatient (CLI) | payer MEDICAID ==
[~2021-10-23] MED LIST changes: +CATHETER FLUSH 10 ML SYR IV PRN; +HOLD METFORMIN - RECEIVED CONTRAST 20 ML VIAL IV SCH; +IOHEXOL 350 MG/ML 100 ML (OMNIPAQUE 350) VIAL IV ONE; +MORP100S7 PO; +NS 100 ML (IVPB) BAG IV ONE
--- NOTE | 2021-10-23 09:51 | Diagnostic Imaging Report ---
PROCEDURE: CT chest, abdomen, and pelvis with contrast. TECHNIQUE: Multiple contiguous axial images were obtained through the chest, abdomen, and pelvis after the administration of intravenous contrast. Auto Exposure Controls were utilized during the CT exam to meet ALARA standards for radiation dose reduction. INDICATION: Uterine cancer, follow-up. CORRELATION is made with prior CT from 02/03/2021. CT CHEST: No axillary lymphadenopathy is detected. No mediastinal or hilar lymphadenopathy is detected. There is no pericardial or pleural fluid detected. Left-sided line has tip at the SVC right atrial junction. The groundglass and nodular opacities noted throughout both lungs on prior CT have resolved and may have been secondary to an infectious/inflammatory process. No discrete pulmonary mass or pulmonary nodules are identified on today's study. IMPRESSION: No evidence of thoracic lymphadenopathy or pulmonary metastatic disease. Previously noted groundglass and nodular infiltrates throughout both lungs on prior study have resolved. CT ABDOMEN AND PELVIS: Significant adverse appearance to the liver is noted since the prior CT. Posterior right lobe of the liver lesion has markedly increased in size, now measuring nearly 15 cm AP compared with 3 cm on prior exam. A lesion just anterior to this in the right lobe measures 2.9 cm. Small lesion near the dome of the liver on prior study appears stable. There are multiple additional small lesions in the region of the dome. The gallbladder is contracted. There is no biliary ductal dilatation. The pancreas and spleen are unremarkable. No adrenal mass is identified. Both kidneys are unremarkable. The aorta is nonaneurysmal. No central, retroperitoneal or mesenteric lymphadenopathy is identified. Small and large bowel loops are nonobstructed. There is a cystic lesion in the right adnexa measuring 4.4 cm, new since the prior exam, perhaps ovarian. There is a new soft tissue mass identified in the deep right paramidline pelvis, anterior to the rectum, at the hysterectomy bed. This measures 4.1 x 3.1 cm. A small nodule near this location is noted on prior study without measuring 1.9 cm. There is no inguinal lymphadenopathy. No definite iliac or obturator lymphadenopathy is detected. IMPRESSION: 1. Adverse appearance to the abdomen and pelvis when compared with prior study from 02/03/2021. There has been significant increase in size and number of multiple hepatic lesions consistent with progression of hepatic metastatic disease. In addition, there is an enlarging soft tissue mass in the hysterectomy bed consistent with local recurrence or karen metastatic disease. 2. Right adnexal cystic lesion. This appears fairly benign and may be ovarian. Dictated by: Dictated on workstation # [id number]
== END ==
LOC: RAD 08:45
PROVIDERS: ATTEND Internal Medicine Hematology & Oncology
DX: Z51.11 Encounter for antineoplastic chemotherapy (principal); C55 Malignant neoplasm of uterus, part unspecified; C78.6 Secondary malignant neoplasm of retroperitoneum and peritoneum; C78.7 Secondary malignant neoplasm of liver and intrahepatic bile duct; N83.291 Other ovarian cyst, right side
CPT/HCPCS: 71260; 74177

== ENCOUNTER → 2021-10-30 | Outpatient (CLI) | payer MEDICAID ==
[~2021-10-30] MED LIST changes: -CATHETER FLUSH 10 ML SYR IV PRN; -HOLD METFORMIN - RECEIVED CONTRAST 20 ML VIAL IV SCH; -IOHEXOL 350 MG/ML 100 ML (OMNIPAQUE 350) VIAL IV ONE; -NS 100 ML (IVPB) BAG IV ONE
== END ==
LOC: CARD 09:16
PROVIDERS: ATTEND Internal Medicine Cardiovascular Disease
DX: I10 Essential (primary) hypertension (principal); I25.10 Atherosclerotic heart disease of native coronary artery without angina pectoris
CPT/HCPCS: 93306

== ENCOUNTER → 2021-10-30 | Outpatient (CLI) | payer MEDICAID ==
[2021-10-30 10:15] LABS: ALANINE AMINOTRANSFERASE 25 U/L (0-55); ALBUMIN 3.3 GM/DL (3.2-4.5); ALKALINE PHOSPHATASE 214 U/L (40-136); BILIRUBIN,TOTAL 1.2 MG/DL (0.1-1.0); BUN/CREATININE RATIO 22; CALCIUM 9.8 MG/DL (8.5-10.1); CARBON DIOXIDE 27 MMOL/L (21-32); CHLORIDE 97 MMOL/L (98-107); CHOLESTEROL 176 MG/DL (< 200); CREATININE SERUM 0.79 MG/DL (0.60-1.30); GFR ESTIMATED 95; GLUCOSE 106 MG/DL (70-105); HDL CHOLESTEROL < 15 MG/DL (40-60); POTASSIUM 3.6 MMOL/L (3.6-5.0); SODIUM 135 MMOL/L (135-145); TOTAL PROTEIN 6.9 GM/DL (6.4-8.2); TRIGLYCERIDES 176 MG/DL (<150); VLDL CHOLESTEROL 35 MG/DL (5-40)
== END ==
LOC: LAB 09:19
PROVIDERS: ATTEND Internal Medicine Cardiovascular Disease
DX: I10 Essential (primary) hypertension (principal); I25.10 Atherosclerotic heart disease of native coronary artery without angina pectoris; E78.2 Mixed hyperlipidemia
CPT/HCPCS: 36415; 80053; 80061

== ENCOUNTER 2021-11-05 07:21 | Outpatient (CLI) | payer MEDICAID ==
[2021-11-05] VITALS (9 sets, daily range): BP systolic 125–137; BP diastolic 62–85
[2021-11-05 08:01] LABS: HEMATOCRIT 36 % (35-52); HEMOGLOBIN 11.6 g/dL (11.5-16.0); MEAN CORPUSCULAR HEMOGLOBIN 29 pg (25-34); MEAN CORPUSCULAR HGB CONC 32 g/dL (32-36); MEAN CORPUSCULAR VOLUME 90 fL (80-99); PLATELET COUNT 154 10^3/uL (130-400); WHITE BLOOD COUNT 14.6 10^3/uL (4.3-11.0)
[2021-11-05] MEDS ORDERED: NS IV 1000 ML 1,000 ML IV STA (08:17)
[2021-11-05 08:18] LABS: INR 1.3 (0.8-1.4); PROTHROMBIN TIME PATIENT 16.4 SEC (12.2-14.7)
[2021-11-05] MEDS ORDERED: fentaNYL INJ 100 MCG/2 ML AMP IVP ONE (08:30)
[2021-11-05] MEDS ORDERED: LIDOCAINE 1% INJ 10 ML VIAL INJ ONE (08:30)
[2021-11-05] MEDS ORDERED: MIDAZOLAM 2 MG/2 ML (VERSED) VIAL IVP ONE (08:30)
[2021-11-05] MEDS ORDERED: HYDROcodone/APAP 5 MG/325 MG (LORTAB) TAB PO PRN (10:00)
--- NOTE | 2021-11-05 12:05 | Diagnostic Imaging Report ---
INDICATION: Liver mass. Patient presents for CT-guided biopsy. TECHNIQUE: All CT scans use one or more of the following dose optimizing techniques: automated exposure control, MA and/or KvP adjustment based on patient size and exam type or iterative reconstruction. Patient brought to the CT suite placed on table in the supine position. Axial imaging through the abdomen was performed to evaluate appropriate entry site. Right abdomen was then prepped and draped in the usual sterile fashion. The procedure was performed utilizing conscious sedation with radiology nursing and constant patient monitoring. Patient was given a total of 50 mcg of fentanyl intravenously and 1 mg of Versed intravenously. Total procedure time was 6 minutes. Right upper quadrant was prepped and draped in usual sterile fashion. Small amount of 1% lidocaine was utilized for local anesthesia. An 18-gauge coaxial Temno needle was advanced and placed within the dominant mass in the right lobe of liver. 4 core biopsies were obtained. Blood patch was injected during needle removal. Hemostasis was obtained using manual compression. Followup imaging shows no complicating features. IMPRESSION: Successful CT-guided core biopsy of dominant right lobe liver mass utilizing conscious sedation. Pathology results are currently pending. Dictated by: Dictated on workstation # [id number]
--- NOTE | 2021-11-05 15:06 | Pre-Op Note & Conscious Sedat ---
Pre-Operative Progress Note Date of Available H&P: Nov 05, 2021 Date H&P Reviewed: Nov 05, 2021 Time H&P Reviewed: 08:00 Pre-Op Diagnosis: liver mass Conscious Sedation Pre-Proced Time 08:00 ASA Score 2 For ASA 3 and 4: Consider anesthesia and medical clearance. Also, for patients with a history of failed moderate sedation consider anesthesia. Airway Lungs Heart ASA score ASA 1: a normal healthy patient ASA 2: a patient with a mild systemic disease (mid diabetes, controlled hypertension, obesity ASA 3: a patient with a severe systemic disease that limits activity (angina, COPD, prior Myocardial infarction) ASA 4: a patient with an incapacitating disease that is a constant threat to life (CHF, renal failure) ASA 5: a moribund patient not expected to survive 24 hrs. (ruptured aneurysm) ASA 6: a declared brain- patient whose organs are being harvested. For emergent operations, add the letter E after the classification Mallampati Classification Grade 2 Sedation Plan Analgesia, Amnesia, Plan communicated to team members, Discussed options with patient/fam, Discussed risks with patient/fam The patient is an appropriate candidate to undergo the planned procedure, sedation, and anesthesia. The patient immediately re-assessed prior to indication. ELADIO PLASCENCIA MD Nov 05, 2021 15:06
== END 2021-11-05 12:02 | disposition home or self-care (01) ==
LOC: SDC 07:21
PROVIDERS: ATTEND Internal Medicine Hematology & Oncology
DX: C78.6 Secondary malignant neoplasm of retroperitoneum and peritoneum (principal); R16.0 Hepatomegaly, not elsewhere classified; C80.1 Malignant (primary) neoplasm, unspecified
CPT/HCPCS: 36415; 77012; 85027; 85610; 85730; 88307; 99156

== ENCOUNTER → 2021-11-06 | Outpatient (RCR) | payer MEDICAID ==
[2021-10-16 11:34] LABS: BASOPHILS % (AUTO) 0 % (0-10); EOSINOPHILS % (AUTO) 0 % (0-10); HEMATOCRIT 39 % (35-52); HEMOGLOBIN 12.5 g/dL (11.5-16.0); LYMPHOCYTES # (AUTO) 1.1 10^3/uL (1.0-4.0); LYMPHOCYTES % (AUTO) 8 % (12-44); MEAN CORPUSCULAR HEMOGLOBIN 29 pg (25-34); MEAN CORPUSCULAR HGB CONC 32 g/dL (32-36); MEAN CORPUSCULAR VOLUME 90 fL (80-99); MEAN PLATELET VOLUME 10.4 fL (9.0-12.2); MONOCYTES # (AUTO) 1.4 10^3/uL (0.0-1.0); MONOCYTES % (AUTO) 10 % (0-12); NEUTROPHILS % (AUTO) 81 % (42-75); PLATELET COUNT 171 10^3/uL (130-400); WHITE BLOOD COUNT 13.7 10^3/uL (4.3-11.0)
[2021-10-16 12:05] LABS: ALBUMIN 3.4 GM/DL (3.2-4.5); CALCIUM 9.7 MG/DL (8.5-10.1); CREATININE SERUM 0.75 MG/DL (0.60-1.30); POTASSIUM 3.8 MMOL/L (3.6-5.0)
== END | disposition home or self-care (01) ==
LOC: ONC 10-16 10:27
PROVIDERS: ATTEND Internal Medicine Hematology & Oncology
DX: Z51.0 Encounter for antineoplastic radiation therapy (principal); Z45.2 Encounter for adjustment and management of vascular access device; C54.1 Malignant neoplasm of endometrium; C78.7 Secondary malignant neoplasm of liver and intrahepatic bile duct; C78.00 Secondary malignant neoplasm of unspecified lung; C78.6 Secondary malignant neoplasm of retroperitoneum and peritoneum
CPT/HCPCS: 80053; 82378; 85025; 86304; G0463; 36591; 77300; 77301; 77338; 77470; 99204; 99213

== ENCOUNTER → 2021-11-13 | Outpatient (CLI) | payer MEDICAID ==
[~2021-11-13] MED LIST changes: +GADOTERATE 0.5 MMOL/ML (CLARISCAN) 20 ML VIAL IV ONE
--- NOTE | 2021-11-13 15:56 | Diagnostic Imaging Report ---
PROCEDURE: MRI lumbar spine with and without contrast. TECHNIQUE: Multiplanar, multisequence MRI of the lumbar spine was performed with and without contrast. INDICATION: Low back pain and bilateral leg weakness. The patient is undergoing radiation therapy for metastatic uterine cancer. COMPARED with lumbar MRI 12/31/2013. Lumbar marrow signal intensity showed no geographic lesion or infiltrating process. No findings to suggest lumbar spinal involvement by metastatic disease. The lower thoracic cord and conus normal. There is no paravertebral mass, hemorrhage or fluid collection but we do note marked heterogeneous distortion of the partially visualized right lobe of the liver with previous report showing known infiltrative lesion within that structure. The L3-L4 disc shows desiccation, stature loss and broad-based bulging posteriorly new from prior with the disc in conjunction with thickened ligamenta flava and facet arthrosis as well as some dorsal epidural lipomatosis results in moderate severity of canal stenosis with mild right greater than left biforaminal narrowing. The discs at the remaining levels well-hydrated and nondisplaced the spinal canal, neural foramen and lateral recesses otherwise widely patent. Ligamentous structures intact. IMPRESSION: 1. No findings of lumbar spinal involvement by metastatic disease. Disc bulge and some posterior element degenerative hypertrophy result in moderate canal and mild biforaminal stenosis at L3-L4. 2. Heterogeneous infiltrative lesion partially visualized in the right hepatic lobe. Dictated by: Dictated on workstation # [id number]
== END ==
LOC: RAD 11:29
PROVIDERS: ATTEND Radiology Radiation Oncology
DX: C55 Malignant neoplasm of uterus, part unspecified (principal); M51.26 Other intervertebral disc displacement, lumbar region; M48.061 Spinal stenosis, lumbar region without neurogenic claudication
CPT/HCPCS: 72158

== ENCOUNTER 2021-12-04 15:06 | Outpatient (RCR) | payer MEDICAID ==
[2021-11-25 15:52] LABS: BASOPHILS % (AUTO) 0 % (0-10); EOSINOPHILS % (AUTO) 0 % (0-10); HEMOGLOBIN 10.7 g/dL (11.5-16.0)
[2021-11-25 15:54] LABS: HEMATOCRIT 33 % (35-52); LYMPHOCYTES # (AUTO) 0.5 10^3/uL (1.0-4.0); LYMPHOCYTES % (AUTO) 6 % (12-44); MEAN CORPUSCULAR HEMOGLOBIN 30 pg (25-34); MEAN CORPUSCULAR HGB CONC 32 g/dL (32-36); MEAN CORPUSCULAR VOLUME 93 fL (80-99); MONOCYTES # (AUTO) 0.9 10^3/uL (0.0-1.0); MONOCYTES % (AUTO) 12 % (0-12); NEUTROPHILS # (AUTO) 6.2 10^3/uL (1.8-7.8); NEUTROPHILS % (AUTO) 81 % (42-75); PLATELET COUNT 83 10^3/uL (130-400); WHITE BLOOD COUNT 7.6 10^3/uL (4.3-11.0)
[2021-11-25 16:16] LABS: BILIRUBIN,TOTAL 1.6 MG/DL (0.1-1.0); CALCIUM 9.6 MG/DL (8.5-10.1); CREATININE SERUM 0.8 MG/DL (0.60-1.30); POTASSIUM 3.4 MMOL/L (3.6-5.0); TOTAL PROTEIN 6.2 GM/DL (6.4-8.2)
[~2021-12-04 15:06] MED LIST changes: -GADOTERATE 0.5 MMOL/ML (CLARISCAN) 20 ML VIAL IV ONE
[2021-12-08] MEDS ORDERED: POTA-51 PO (16:51)
[2021-12-11] MEDS ORDERED: PANT40TA52 PO ×2 (13:59→15:27)
[2021-12-11] MEDS ORDERED: ESCI-2 PO (14:12)
[2021-12-11] MEDS ORDERED: MILK175C5 PO (14:12)
[2021-12-11] MEDS ORDERED: SENN8.6T17 PO (14:12)
[2021-12-11] MEDS ORDERED: LORA-404 PO (14:12)
[2021-12-11] MEDS ORDERED: TURM500T PO (14:12)
[2021-12-11] MEDS ORDERED: ONDA4TAB11 PO (14:12)
[2021-12-11] MEDS ORDERED: OXYC40TA46 PO (14:12)
[2021-12-11] MEDS ORDERED: FAMO20TA5 PO (14:12)
[2021-12-11] MEDS ORDERED: POTA-51 PO (14:12)
[2021-12-11] MEDS ORDERED: LACT10SO63 PO (14:12)
[2021-12-11] MEDS ORDERED: ZINC50TA11 PO (14:12)
[2021-12-11] MEDS ORDERED: FURO40TA4 PO (14:12)
[2021-12-11] MEDS ORDERED: OXYC10TA7 PO (14:16)
== END 2021-12-07 | disposition home or self-care (01) ==
LOC: ONC 15:06
PROVIDERS: ATTEND Internal Medicine Hematology & Oncology
DX: Z51.0 Encounter for antineoplastic radiation therapy (principal); C54.1 Malignant neoplasm of endometrium; C56.3 Malignant neoplasm of bilateral ovaries; C78.7 Secondary malignant neoplasm of liver and intrahepatic bile duct; C78.00 Secondary malignant neoplasm of unspecified lung; C78.6 Secondary malignant neoplasm of retroperitoneum and peritoneum
CPT/HCPCS: 36415; 77336; 77386; 80053; 85025; 86304

== ENCOUNTER 2021-12-08 14:36 | Emergency (ER) | payer MEDICAID ==
[~2021-12-08] VITALS: Ht 176 cm; Wt 122.5 kg
--- NOTE | 2021-12-08 15:11 | ED Chest Pain ---
General Chief Complaint: Respiratory Problems Stated Complaint: SOB Nursing Triage Note: PT TO ED IN WC WITH C/ SOB. PT REPORTS SHE FELT A "POP" IN L RIBCAGE UNDER BREAST LAST NIGHT AND HAS SINCE HAD SOB BC SHE FEELS LIKE SHE IS RESTRICTED BY PAIN FROM TAKING A FULL BREATH. Source: patient Exam Limitations: no limitations History of Present Illness Date Seen by Provider: Dec 08, 2021 Time Seen by Provider: 14:45 Initial Comments Patient is a 41-year-old female with a history of stage IV ovarian cancer who presents to the emergency department with sudden onset of left lower chest pain when she was twisting yesterday evening. She states she felt a popping sensation and since that time has had increased pain with deep inspiration, certain movements, or palpation of the affected area. She recently finished 3 weeks of daily radiation last Tuesday. She is scheduled to start chemotherapy on with her primary oncologist Dr. Coy. She is currently on twice daily OxyContin and every 4 hour immediate release oxycodone. She states she has been taking these medicines with minimal improvement in her symptoms. She denies any diaphoresis or increased lower extremity edema. Allergies and Home Medications Allergies Coded Allergies: amoxicillin (Unverified Allergy, Mild, HIVES, 05/30/08) aspirin (Unverified Allergy, Unknown, 01/13/14) Patient Home Medication List Home Medication List Reviewed: Yes Hydrocodone Bit/Acetaminophen (Lortab 7.5 Mg Tablet) 1 Ea Tablet, 1 TAB PO Q4H PRN for PAIN-MILD TO MODERATE, (Reported) Entered as Reported by: ALEKSANDRA ACOSTA on 03/17/17 1224 Hydrocodone/Acetaminophen (Hydrocodone-Acetamin 5-325 mg) 1 Each Tablet, 1 TAB PO Q4H PRN for PAIN-MODERATE (5-7) Prescribed by: SOLEDAD CHAMPION on 08/13/20 1554 Morphine Sulfate (Morphine Conc. 20mg/ml) 100 Mg/5 Ml (20 Mg/Ml) Solution, 10 MG PO Q4H PRN for PAIN Prescribed by: SOLEDAD CHAMPION on 10/19/21 1656 Sulfamethoxazole/Trimethoprim (Sulfamethoxazole-Tmp Ds Tablet) 1 Each Tablet, 1 EACH PO BID, (Reported) Entered as Reported by: ALEKSANDRA ACOSTA on 03/17/17 1224 Review of Systems Review of Systems Constitutional: no symptoms reported EENTM: No Symptoms Reported Respiratory: See HPI Cardiovascular: See HPI Gastrointestinal: No Symptoms Reported Genitourinary: No Symptoms Reported Musculoskeletal: no symptoms reported Psychiatric/Neurological: No Symptoms Reported Past Cjycfef-Obgjyu-Uliddj Hx Patient Social History Tobacco Use?: No Smoking Status: Former Smoker Use of E-Cig and/or Vaping dev: No Substance use?: No Alcohol Use?: No Pt feels they are or have been: No Immunizations Up To Date Tetanus Booster (TDap): Unknown Influenza Vaccine Up-to-Date: No; Not Current Seasonal Allergies Seasonal Allergies: No Past Medical History Surgery/Hospitalization HX: STAGE 4 UTERINE CA HYSTERECTOMY Surgeries: Yes Adenoidectomy, Tonsillectomy Respiratory: Yes Asthma Cardiac: No Neurological: No Gastrointestinal: No Musculoskeletal: Yes Arthritis Endocrine: No Cancer: No Psychosocial: No Family Medical History Patient reports no known family medical history. Physical Exam Vital Signs Vital Signs - First Documented 12/08/21 14:40 Pulse 118 Resp 24 B/P (MAP) 132/85 (101) Pulse Ox 98 O2 Delivery Room Air Capillary Refill : Less Than 3 Seconds Height, Weight, BMI Height: 5'9.00" Weight: 267lbs. 0.0oz. 121.051316yb; 39.00 BMI Method:Stated General Appearance: No Apparent Distress, WD/WN HEENT: PERRL/EOMI, TMs Normal, Normal ENT Inspection, Pharynx Normal Neck: Full Range of Motion, Normal Inspection, Non Tender, Supple Respiratory: Lungs Clear, Normal Breath Sounds, No Accessory Muscle Use, No Respiratory Distress Cardiovascular: Regular Rate, Rhythm Gastrointestinal: Normal Bowel Sounds Neurologic/Psychiatric: Alert, Oriented x3, No Motor/Sensory Deficits, Normal Mood/Affect Other comments left costal margin tenderness to palpation Progress/Results/Core Measures Results/Orders Lab Results Laboratory Tests Test 12/08/21 14:58 Range/Units White Blood Count 9.7 4.3-11.0 10^3/uL Red Blood Count 3.54 L 3.80-5.11 10^6/uL Hemoglobin 11.0 L 11.5-16.0 g/dL Hematocrit 34 L 35-52 % Mean Corpuscular Volume 97 80-99 fL Mean Corpuscular Hemoglobin 31 25-34 pg Mean Corpuscular Hemoglobin Concent 32 32-36 g/dL Red Cell Distribution Width 18.3 H 10.0-14.5 % Platelet Count 70 L 130-400 10^3/uL Mean Platelet Volume 11.8 9.0-12.2 fL Immature Granulocyte % (Auto) 1 % Neutrophils (%) (Auto) 81 H 42-75 % Lymphocytes (%) (Auto) 6 L 12-44 % Monocytes (%) (Auto) 11 0-12 % Eosinophils (%) (Auto) 1 0-10 % Basophils (%) (Auto) 0 0-10 % Neutrophils # (Auto) 7.8 1.8-7.8 X 10^3 Lymphocytes # (Auto) 0.6 L 1.0-4.0 X 10^3 Monocytes # (Auto) 1.1 H 0.0-1.0 X 10^3 Eosinophils # (Auto) 0.1 0.0-0.3 10^3/uL Basophils # (Auto) 0.0 0.0-0.1 10^3/uL Immature Granulocyte # (Auto) 0.1 0.0-0.1 10^3/uL Neutrophils % (Manual) 86 % Lymphocytes % (Manual) 2 % Monocytes % (Manual) 11 % Eosinophils % (Manual) 1 % Polychromasia SLIGHT Prothrombin Time 17.1 H 12.2-14.7 SEC INR Comment 1.3 0.8-1.4 Activated Partial Thromboplast Time 34 24-35 SEC Sodium Level 130 L 135-145 MMOL/L Potassium Level 3.1 L 3.6-5.0 MMOL/L Chloride Level 93 L 98-107 MMOL/L Carbon Dioxide Level 22 21-32 MMOL/L Anion Gap 15 H 5-14 MMOL/L Blood Urea Nitrogen 18 7-18 MG/DL Creatinine 0.77 0.60-1.30 MG/DL Estimat Glomerular Filtration Rate 98 BUN/Creatinine Ratio 23 Glucose Level 119 H 70-105 MG/DL Calcium Level 10.0 8.5-10.1 MG/DL Corrected Calcium 11.2 H 8.5-10.1 MG/DL Magnesium Level 1.4 L 1.6-2.4 MG/DL Total Bilirubin 1.9 H 0.1-1.0 MG/DL Aspartate Amino Transf (AST/SGOT) 38 H 5-34 U/L Alanine Aminotransferase (ALT/SGPT) 17 0-55 U/L Alkaline Phosphatase 313 H 40-136 U/L Myoglobin 28.7 10.0-92.0 NG/ML Troponin I < 0.028 <0.028 NG/ML Total Protein 6.2 L 6.4-8.2 GM/DL Albumin 2.5 L 3.2-4.5 GM/DL My Orders Orders - BENJAMIN BAJWA SAFETY CONSULTANT Cbc With Automated Diff (12/08/21 14:47) Magnesium (12/08/21 14:47) Chest 1 View, Ap/Pa Only (12/08/21 14:47) Ekg Tracing (12/08/21 14:47) Comprehensive Metabolic Panel (12/08/21 14:47) Myoglobin Serum (12/08/21 14:47) Protime With Inr (12/08/21 14:47) Partial Thromboplastin Time (12/08/21 14:47) O2 (12/08/21 14:47) Monitor-Rhythm Ecg Trace Only (12/08/21 14:47) Ed Iv/Invasive Line Start (12/08/21 14:47) Troponin I Cristian (12/08/21 14:47) Manual Differential (12/08/21 14:58) Ns Iv 1000 Ml (Sodium Chloride 0.9%) (12/08/21 16:00) Hydromorphone Injection (Dilaudid Inject (12/08/21 16:00) Medications Given in ED Current Medications Medications Dose Ordered Sig/Renny Route Start Time Stop Time Status Last Admin Dose Admin Hydromorphone HCl 1 mg ONCE ONCE IV 12/08/21 16:00 12/08/21 16:01 DC 12/08/21 16:01 1 MG Vital Signs/I&O 12/08/21 14:40 Pulse 118 Resp 24 B/P (MAP) 132/85 (101) Pulse Ox 98 O2 Delivery Room Air Blood Pressure Mean: 101 Progress Progress Note : Progress Note Patient is nontoxic on exam. Vital signs notable for tachycardia but otherwise reassuring. Patient does have some slightly tacky mucous membranes. She has tenderness to palpation over the left costal margin. No crepitus or step-off noted. No adventitious lung sounds or increased work of breathing noted. Laboratory evaluation notable for hyponatremia, hypokalemia, hypochloremia. CBC is largely unremarkable. Patient does appear mildly dehydrated. She was thus given a liter of normal saline. Patient was given 1 mg of Dilaudid for her pain with subsequent improvement. Her tachycardia improved with the pain medicine and the fluids. Discussed importance of close follow-up with her oncologist. Return precautions for symptomology discussed. Patient verbalized understanding. Departure Impression Primary Impression: Left-sided chest wall pain Disposition: HOME, SELF-CARE Condition: Improved Departure-Patient Inst. Referrals: [facility] [place] (PCP/Family) Primary Care Physician Patient Instructions: Chest Pain That Is Not Caused by the Heart (DC) Scripts Potassium Chloride (Potassium Chloride) 20 Meq Tablet.er 20 MEQ PO DAILY for 5 Days, #5 TAB 0 Refills Prov: BENJAMIN BAJWA APRN 12/08/21 BENJAMIN BAJWA APRN Dec 08, 2021 15:11
[2021-12-08 15:24] LABS: BASOPHILS % (AUTO) 0 % (0-10); EOSINOPHILS # (AUTO) 0.1 10^3/uL (0.0-0.3); EOSINOPHILS % (AUTO) 1 % (0-10); HEMATOCRIT 34 % (35-52); LYMPHOCYTES # (AUTO) 0.6 X 10^3 (1.0-4.0); LYMPHOCYTES % (AUTO) 6 % (12-44); MEAN CORPUSCULAR HEMOGLOBIN 31 pg (25-34); MEAN CORPUSCULAR HGB CONC 32 g/dL (32-36); MEAN CORPUSCULAR VOLUME 97 fL (80-99); MEAN PLATELET VOLUME 11.8 fL (9.0-12.2); MONOCYTES # (AUTO) 1.1 X 10^3 (0.0-1.0); MONOCYTES % (AUTO) 11 % (0-12); NEUTROPHILS # (AUTO) 7.8 X 10^3 (1.8-7.8); NEUTROPHILS % (AUTO) 81 % (42-75); PLATELET COUNT 70 10^3/uL (130-400); WHITE BLOOD COUNT 9.7 10^3/uL (4.3-11.0)
[2021-12-08 15:38] LABS: ALBUMIN 2.5 GM/DL (3.2-4.5); INR 1.3 (0.8-1.4); POTASSIUM 3.1 MMOL/L (3.6-5.0); PROTHROMBIN TIME PATIENT 17.1 SEC (12.2-14.7)
[2021-12-08 15:41] LABS: EOSINOPHILS % (MANUAL) 1 %; LYMPHOCYTES % (MANUAL) 2 %; MONOCYTES % (MANUAL) 11 %; NEUTROPHILS % (MANUAL) 86 %; TOTAL PROTEIN 6.2 GM/DL (6.4-8.2)
[2021-12-08 15:42] LABS: POLYCHROMASIA SLIGHT
[2021-12-08 15:43] LABS: BILIRUBIN,TOTAL 1.9 MG/DL (0.1-1.0)
[2021-12-08 15:44] LABS: CREATININE SERUM 0.77 MG/DL (0.60-1.30)
[2021-12-08 15:47] LABS: MAGNESIUM 1.4 MG/DL (1.6-2.4)
[2021-12-08] MEDS ORDERED: NS IV 1000 ML 1,000 ML IV SCH (16:00)
[2021-12-08] MEDS ORDERED: HYDROmorphone 2 MG/ML VIAL (DILAUDID) IV ONE (16:00)
--- NOTE | 2021-12-08 16:14 | Diagnostic Imaging Report ---
INDICATION: Chest pain. COMPARISON: Exam compared to 12/09/2020. FINDINGS: There is discoid subsegmental atelectasis in the right lung base, lungs otherwise clear. No edema, pneumonia, effusion, or pneumothorax. Left subclavian at the lower SVC, stable. Elevation of the right hemidiaphragm again noted. IMPRESSION: Poor inspiratory volume with some discoid subsegmental right basilar atelectasis, otherwise negative. Dictated by: Dictated on workstation # [id number]
[2021-12-08] MEDS ORDERED: POTA-51 PO (16:51)
[2021-12-08] MEDS ORDERED: HEParin (CENTRAL IV FLUSH) 500 UNIT/5 ML SYR IV ONE (17:00)
[2021-12-08 17:12] VITALS: BP 156/82
[2021-12-11] MEDS ORDERED: PANT40TA52 PO ×2 (13:59→15:27)
[2021-12-11] MEDS ORDERED: OXYC40TA46 PO (14:12)
[2021-12-11] MEDS ORDERED: LORA-404 PO (14:12)
[2021-12-11] MEDS ORDERED: ESCI-2 PO (14:12)
[2021-12-11] MEDS ORDERED: TURM500T PO (14:12)
[2021-12-11] MEDS ORDERED: MILK175C5 PO (14:12)
[2021-12-11] MEDS ORDERED: ZINC50TA11 PO (14:12)
[2021-12-11] MEDS ORDERED: FURO40TA4 PO (14:12)
[2021-12-11] MEDS ORDERED: POTA-51 PO (14:12)
[2021-12-11] MEDS ORDERED: SENN8.6T17 PO (14:12)
[2021-12-11] MEDS ORDERED: ONDA4TAB11 PO (14:12)
[2021-12-11] MEDS ORDERED: FAMO20TA5 PO (14:12)
[2021-12-11] MEDS ORDERED: LACT10SO63 PO (14:12)
[2021-12-11] MEDS ORDERED: OXYC10TA7 PO (14:16)
== END 2021-12-08 17:11 | disposition home or self-care (01) ==
LOC: EDUNIT# 14:36 → ER 14:37
DX: R07.89 Other chest pain (principal); E87.1 Hypo-osmolality and hyponatremia; E87.6 Hypokalemia; E87.8 Other disorders of electrolyte and fluid balance, not elsewhere classified; E86.0 Dehydration; R00.0 Tachycardia, unspecified; Z28.310 Unvaccinated for COVID-19; Z87.891 Personal history of nicotine dependence; Z88.6 Allergy status to analgesic agent; X50.1XXA Overexertion from prolonged static or awkward postures, initial encounter
CPT/HCPCS: 36415; 71045; 80053; 83735; 83874; 84484; 85007; 85027; 85610; 85730; 93005; 93041

== ENCOUNTER 2021-12-17 09:00 | Outpatient (RCR) | payer MEDICAID ==
[~2021-12-17] VITALS: Ht 175.3 cm; Wt 124.7 kg
[~2021-12-17 09:00] MED LIST changes: +ESCI-2 PO; +FAMO20TA5 PO; +FURO40TA4 PO; +HEParin (CENTRAL IV FLUSH) 500 UNIT/5 ML SYR IV PRN; +LACT10SO63 PO; +LORA-404 PO; +MILK175C5 PO; +NS IV 500 ML (CANCER CENTER) IV SCH; +ONDA4TAB11 PO; +OXYC10TA7 PO; +OXYC40TA46 PO; +PANT40TA52 PO; +PEMBROLIZUMAB 200 MG in NS (IVPB) 50 ML IV SCH; +POTA-51 PO; +SENN8.6T17 PO; +TURM500T PO; +ZINC50TA11 PO
[2021-12-17] MEDS ORDERED: NS IV 1000 ML 1,000 ML ONE (10:07)
[2021-12-17] MEDS ORDERED: [UNRECOGNIZED DRUG - OTHER] IV ONE (10:17)
[2021-12-17] MEDS ORDERED: ONDANSETRON IV ONE (10:17)
[2021-12-17] MEDS ORDERED: DEXAMETHASONE SODIUM PHOSPHATE IV ONE (10:17)
[2021-12-17 10:19] LABS: BASOPHILS % (AUTO) 0 % (0-10); HEMOGLOBIN 11.5 g/dL (11.5-16.0); LYMPHOCYTES % (AUTO) 7 % (12-44); NEUTROPHILS % (AUTO) 78 % (42-75)
[2021-12-17 10:21] LABS: BASOPHILS # (AUTO) 0.1 10^3/uL (0.0-0.1); EOSINOPHILS # (AUTO) 0.1 10^3/uL (0.0-0.3); EOSINOPHILS % (AUTO) 1 % (0-10); HEMATOCRIT 34 % (35-52); LYMPHOCYTES # (AUTO) 1.1 10^3/uL (1.0-4.0); MEAN CORPUSCULAR HEMOGLOBIN 32 pg (25-34); MEAN CORPUSCULAR HGB CONC 33 g/dL (32-36); MEAN CORPUSCULAR VOLUME 95 fL (80-99); MEAN PLATELET VOLUME 11.3 fL (9.0-12.2); MONOCYTES # (AUTO) 1.9 10^3/uL (0.0-1.0); MONOCYTES % (AUTO) 11 % (0-12); NEUTROPHILS # (AUTO) 13.2 10^3/uL (1.8-7.8); PLATELET COUNT 57 10^3/uL (130-400)
[2021-12-17 10:34] LABS: BILIRUBIN,TOTAL 7.1 MG/DL (0.1-1.0); CALCIUM 7.5 MG/DL (8.5-10.1); CREATININE SERUM 0.73 MG/DL (0.60-1.30); POTASSIUM 3.9 MMOL/L (3.6-5.0); TOTAL PROTEIN 5.5 GM/DL (6.4-8.2)
[2021-12-17] MEDS ORDERED: HYDROmorphone 2 MG/ML VIAL (DILAUDID) ONE (10:36)
[2021-12-17] MEDS ORDERED: HYDROmorphone 2 MG/ML VIAL (DILAUDID) IV ONE (10:45)
[2021-12-17] MEDS ORDERED: ONDANSETRON MDV (CANCER CENTER 8 MG in NS (IVPB) 50 ML IV ONE (13:49)
== END 2022-01-06 | disposition home or self-care (01) ==
LOC: ONC 09:00
PROVIDERS: ATTEND Internal Medicine Hematology & Oncology
DX: C54.1 Malignant neoplasm of endometrium (principal); C56.3 Malignant neoplasm of bilateral ovaries; C78.7 Secondary malignant neoplasm of liver and intrahepatic bile duct; C78.00 Secondary malignant neoplasm of unspecified lung; C78.6 Secondary malignant neoplasm of retroperitoneum and peritoneum; I10 Essential (primary) hypertension; E78.2 Mixed hyperlipidemia
CPT/HCPCS: 36591; 80053; 84443; 85025; 86304; 96360; 96361; 96375; 99213